=== PATIENT | male | born 1945 | race Hispanic/Latino ===

== ENCOUNTER 2019-01-01 14:40 | Inpatient (IN) | payer MEDICARE, OTHER ==
[~2019-01-01] VITALS: Ht 167.6 cm; Wt 81.2 kg
--- OUTSIDE RECORDS SUMMARY | 2019-01-01 14:43 | XMS REPORT | Clinical Summary ---
Author Author DEVI [facility] Organization [facility] Address Unknown Phone Unavailable Care Team Providers Care Supervisor Erection Shop Name Role Phone Doreen Suh MD PCP Allergies Comments Active Allergy Reactions Severity Noted Date Amoxicillin Nausea Only High 01/07/2015 Burn to skin Latex Other (See High 07/26/2015 Comments) Burn to skin-Can only use paper tape [employer], Other (See High 07/26/2015 Miscellaneous Comments) Medications End Date Status Medication Sig Dispensed Refills Start Date Active predniSONE (DELTASONE) 5 Take 5 mg by 0 MG tablet mouth daily. Active multivitamin capsule Take 1 0 capsule by mouth daily. Active finasteride (PROSCAR) 5 Take 1 tablet 90 tablet 3 mg tablet (5 mg total) 4 by mouth daily. Active tamsulosin (FLOMAX) 0.4 Take 1 90 capsule 3 mg Cp24 24 hr capsule capsule (0.4 4 mg total) by mouth every evening. Active clopidogrel (PLAVIX) 75 Take 1 tablet 30 tablet 3 mg tablet (75 mg total) 4 by mouth daily. Active lancets & blood glucose Check FSG 100 strip 99 strips Cmpk daily. 5 Active cycloSPORINE modified Take 75 mg by 0 (NEORAL) 100 MG capsule mouth 2 (two) 3 times daily . Active metoprolol (LOPRESSOR) 50 Take 50 mg by 0 MG tablet mouth 2 (two) times daily . Active nizatidine (AXID) 150 MG Take 150 mg 0 capsule by mouth 2 (two) times daily. Active blood sugar diagnostic Check your 200 strip 1 (FREESTYLE LITE STRIPS) blood sugar 6 StrpIndications: Diabetes twice daily.. mellitus type 2, uncontrolled (HCC) Active lancets MiscIndications: Please check 100 each 2 Diabetes mellitus type 2, your blood 6 uncontrolled (HCC) sugar twice daily.. Active amLODIPine (NORVASC) 10 Take 1 tablet 90 tablet 1 MG tabletIndications: (10 mg total) 7 Essential hypertension by mouth daily. Active linagliptin (TRADJENTA) 5 Take by 0 mg Tab mouth. Active cholecalciferol, vitamin Take by mouth 0 D3, 2,000 unit Cap daily. Active VIT A/VIT C/VIT Take 1 0 E/ZINC/COPPER capsule by (PRESERVISION AREDS ORAL) mouth daily. Active ramipril (ALTACE) 10 MG Take 10 mg by 0 capsule mouth daily. Active metFORMIN (GLUMETZA) 500 Take 1,000 mg 0 MG (MOD) 24 hr tablet by mouth 2 (two) times daily with breakfast and dinner. Active simvastatin (ZOCOR) 20 MG TAKE ONE 90 tablet 0 tabletIndications: TABLET BY 8 Hyperlipidemia, MOUTH ONCE unspecified DAILY AT hyperlipidemia type BEDTIME 05/02/2018 Discontinued simvastatin (ZOCOR) 20 MG Take 1 tablet 90 tablet 1 tabletIndications: (20 mg total) 7 Hyperlipidemia, by mouth unspecified nightly. 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 Barclay PRA 0/92%, ATG induction, CMV +/+ Still has working AVF L arm DM (diabetes mellitus) Overview: Brittle. He has also been going to diabetes/nutrition education without significant improvement in the BG. Trying for strict control due to h/o CVA. Now follows with Dr Bunn, on metformin and iza. 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 Valenzuela Resolved Problems Problem Noted Date Resolved Date Skin lesion of right arm 12/10/2017 05/28/2018 Encounters Care Team Description Date Type Specialty Doreen Suh MD Hyperlipidemia, unspecified hyperlipidemia type 09/17/2018 Refill Internal Medicine Marielos Roche, DEPARTMENT MANAGER 09/13/2018 Social Work Transplant Doreen Suh MD Type 2 diabetes mellitus with diabetic polyneuropathy, without long-term current use of insulin (HCC) (Primary Dx); Annual physical exam; Current chronic use of systemic steroids; Needs flu shot; Coronary artery disease involving [place] coronary artery of [place] heart without angina pectoris; Essential hypertension; -donor kidney transplant 05/27/2018 Office Visit Internal Medicine Bernice Meadows MD Hyperlipidemia, unspecified hyperlipidemia type 05/02/2018 Refill Internal Medicine after 12/31/2017 Immunizations Name Dates Previously Given Next Due Influenza High Dose 05/27/2018 Preservative Free IM Influenza TIV (IM) 10/08/2013 Pneumococcal Conjugate 01/10/2016 (Prevnar) 13-Valent Pneumococcal 10/08/2012 Polysaccharide (Pneumovax) SHINGLES VARICELLA 01/10/2016 (ZOSTAVAX) ZOSTER Tdap 10/08/2012 Family History Medical History Relation Name Comments Diabetes Mother Relation Name Status Comments Father Mother Social History Date Tobacco Use Types Packs/Day Years Used Never Smoker Smokeless Tobacco: Never Used Tobacco Cessation: Counseling Given: Yes Alcohol Use Drinks/Week oz/Week Comments No Sex Assigned at Date Recorded Not on file Industry Job Start Date Occupation Not on file Not on file Not on file Travel End Travel History Travel Start No recent travel history available. Last Filed Vital Signs Time Taken Vital Sign Reading 05/27/2018 9:22 AM DEFECT CUTTER Blood Pressure 137/68 05/27/2018 9:22 AM DEFECT CUTTER Pulse 69 05/27/2018 9:22 AM DEFECT CUTTER Temperature 36.4 C (97.6 F) 05/27/2018 9:22 AM DEFECT CUTTER Respiratory Rate 18 05/27/2018 9:22 AM DEFECT CUTTER Oxygen Saturation 96% - Inhaled Oxygen - Concentration 05/27/2018 9:22 AM DEFECT CUTTER Weight 72.6 kg (160 lb) 05/27/2018 9:22 AM DEFECT CUTTER Height 167.6 cm (5' 6") 05/27/2018 9:22 AM DEFECT CUTTER Body Mass Index 25.82 Plan of Treatment Not on file Results Not on fileafter 12/31/2017 Insurance Payer Benefit Subscriber ID Type Phone Address Plan / Group MEDICARE MEDICARE A xxxxxxxxxxx Medicare B MCR SUPPLEMENT/INDIVIDUAL GENERIC xxxxxxxxx Medigap MEDICARE SUPPLEMENT Advance Directives For more information, please contact: [address] [address] Date Inactivated Comments Code Status Date Activated 07/29/2015 8:09 PM Full Code 07/26/2015 6:32 PM This code status was determined by: Patient
[2019-01-01 15:53] LABS: BASOPHILS % 0.3 % (0.0-1.0); EOSINOPHILS % 0.3 % (0.0-6.0); HEMATOCRIT 33.6 % (38.2-49.6); HEMOGLOBIN 11.2 g/dL (14.0-18.0); LYMPHOCYTES # (AUTO) 1.3 (1.0-3.2); LYMPHOCYTES % 11.4 % (18.0-39.1); MEAN CORPUSCULAR HEMOGLOBIN 31.1 pg (28-32); MEAN CORPUSCULAR HGB CONC 33.3 g/dL (31-35); MEAN CORPUSCULAR VOLUME 93.3 fL (81-99); MONOCYTES # (AUTO) 0.6 (0.2-0.8); MONOCYTES % 5.1 % (4.4-11.3); NEUTROPHILS # (AUTO) 9.5 (2.1-6.9); NEUTROPHILS % 82.4 % (38.7-80.0); PLATELET COUNT 262 x10e3/uL (140-360); RED CELL DISTRIBUTION WIDTH 12.9 % (11.7-14.4)
[2019-01-01] MEDS ORDERED: FINASTERIDE5 MG PO (15:54)
[2019-01-01] MEDS ORDERED: FLOMAX0.4 MG PO (15:54)
[2019-01-01] MEDS ORDERED: PREDNISONE5 MG PO (15:54)
[2019-01-01] MEDS ORDERED: FUROSEMIDE40 MG PO (15:54)
[2019-01-01] MEDS ORDERED: CLOPIDOGREL75 MG PO (15:54)
[2019-01-01] MEDS ORDERED: TRADJENTA5 MG PO (15:54)
[2019-01-01] MEDS ORDERED: ZOCOR20 MG PO (15:54)
[2019-01-01] MEDS ORDERED: DIALYVITE TABL1 EACH (15:54)
[2019-01-01] MEDS ORDERED: NORVASC10 MG PO (15:54)
[2019-01-01] MEDS ORDERED: METOPROLOL TART50 MG PO (15:54)
[2019-01-01] MEDS ORDERED: ALTACE10 MG PO (15:54)
[2019-01-01] MEDS ORDERED: METFORMIN HCL500 MG PO (15:54)
[2019-01-01 16:01] LABS: INR 0.94; PROTHROMBIN TIME 13.1 seconds (11.9-14.5)
[2019-01-01 16:02] LABS: PARTIAL THROMBOPLASTIN TIME 35.2 seconds (23.8-35.5)
[2019-01-01 16:10] LABS: ALANINE AMINOTRANSFERASE 16 IU/L (0-55); ALBUMIN/GLOBULIN RATIO 0.8 (0.8-2.0); ALKALINE PHOSPHATASE 86 IU/L (40-150); ANION GAP 13.1 mmol/L (8-16); BLOOD UREA NITROGEN 32 mg/dL (7-26); BUN/CREATININE RATIO 33 (6-25); CALCIUM 9.7 mg/dL (8.4-10.2); CARBON DIOXIDE 19 mmol/L (22-29); CHLORIDE 103 mmol/L (98-107); CREATININE, SERUM 0.98 mg/dL (0.72-1.25); EST GLOMERULAR FILTRATION RATE > 60 ML/MIN (60-); GLUCOSE 149 mg/dL (74-118); SODIUM 130 mmol/L (136-145)
[2019-01-01 16:14] LABS: POTASSIUM 5.1 mmol/L (3.5-5.1)
--- NOTE | 2019-01-01 17:10 | NUR ---
RECEIVED REPORT FROM MARIA TERESA GUY. ASSUMED CARE AT THIS TIME, RESTING IN STRETCHER, BREATHING EVEN/UNLABORED, NO NEEDS VOICED AT THIS TIME.
--- NOTE | 2019-01-01 17:20 | NUR ---
IDENTIFICATION AND RECORDS COMMANDER MARIA TERESA MI CALLED TO INFORM OF PENDING ORDER FOR STAT VASCULAR SONOGRAM.
--- NOTE | 2019-01-01 17:32 | NUR ---
SPOKE WITH SUPERVISOR [facility]TO[employer]ET[employer]OR[facility], EXAM ALREADY COMPLETED AND GIVEN TO MD FOR REVIEW.
[2019-01-01] MEDS ORDERED: HYDRALAZINE HCL 20 MG/ML VIAL IV STA (17:33)
[2019-01-01] MEDS ORDERED: ONDANSETRON HCL INJ 2MG/ML 2ML 2 MG/ML VIAL IV PRN (18:45)
[2019-01-01] MEDS ORDERED: MORPHINE SULFATE 2 MG/ML SYR 1ML IV PRN (18:45)
[2019-01-01] MEDS ORDERED: DEXTROSE 50% SYRINGE 50 ML IV PRN (18:45)
--- OUTSIDE RECORDS SUMMARY | 2019-01-01 18:49 | XMS REPORT | Clinical Summary ---
Author Author DEVI [facility] Organization [facility] Address Unknown Phone Unavailable Care Team Providers Care Cup Machine Operator Name Role Phone Doreen Suh MD PCP [...] type 09/17/2018 Refill Internal Medicine Marielos Roche, TEST AND RESEARCH REACTOR OPERATOR 09/13/2018 Social Work Transplant Doreen Suh MD Type 2 diabetes mellitus with diabetic polyneuropathy, without long-term current use of insulin (HCC) (Primary Dx); Annual physical exam; Current chronic use of systemic steroids; Needs flu shot; Coronary artery disease involving [place] coronary artery of [place] heart without angina pectoris; Essential hypertension; -donor [...] Taken Vital Sign Reading 05/27/2018 9:22 AM YARN WRAPPER Blood Pressure 137/68 05/27/2018 9:22 AM YARN WRAPPER Pulse 69 05/27/2018 9:22 AM YARN WRAPPER Temperature 36.4 C (97.6 F) 05/27/2018 9:22 AM YARN WRAPPER Respiratory Rate 18 05/27/2018 9:22 AM YARN WRAPPER Oxygen Saturation 96% - Inhaled Oxygen - Concentration 05/27/2018 9:22 AM YARN WRAPPER Weight 72.6 kg (160 lb) 05/27/2018 9:22 AM YARN WRAPPER Height 167.6 cm (5' 6") 05/27/2018 9:22 AM YARN WRAPPER Body Mass Index 25.82 Plan of Treatment Not on file Results Not on fileafter 12/31/2017 Insurance Payer Benefit Subscriber ID Type Phone Address Plan / Group MEDICARE MEDICARE A xxxxxxxxxxx Medicare B MCR SUPPLEMENT/INDIVIDUAL GENERIC xxxxxxxxx Medigap MEDICARE SUPPLEMENT Advance Directives For more information, please contact: [address] [address] Date Inactivated Comments Code Status Date Activated 07/29/2015 8:09 PM Full Code 07/26/2015 6:32 PM This code status was determined by: Patient
--- NOTE | 2019-01-01 18:59 | Diagnostic Imaging Report ---
RIGHT FOOT - 3 Images HISTORY: Gangrene third toe, swelling, diabetic COMPARISON: None available. FINDINGS: Overlying artifacts limit bone detail. Bones: Attenuation and cortical irregularity involving the tuft of the third toe. Joints: Moderate hallux valgus deformity. Soft tissues: Apparent soft tissue defect at the distal aspect of the third toe. Nonspecific soft tissue swelling. IMPRESSION: Findings compatible with osteomyelitis involving the distal phalanx of the third toe. Signed by: Dr. Yaya Merrill D.O., M.M.M. on 01/01/2019 6:55 PM
[2019-01-01] MEDS ORDERED: SODIUM CHLORIDE 0.9% 1000ML 1,000 ML IV SCH (19:00)
[2019-01-01] MEDS ORDERED: VANCOMYCIN 1GM/NS 250 ML 250 ML IV ONE (19:00)
[2019-01-01 20:08] VITALS: BP 153/69
--- NOTE | 2019-01-01 20:10 | NUR ---
Admin to room 286 via w/c. Pt alert and orient to name, knows he's at [facility], knows the date and time, and knows he's at the hospital for his diabetic foot ulcer. Ambulates steady with quad cane. Legally blind, orientated to bed control and remote with feel also. Skin warm and dry. Stage I pressure ulcer to sacrum and redness. Right foot 3rd toe necrotic and redness. Last BM today. Denies GI problems. 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 Cap refill <3 secs. Denies pain or discomfort at this time. 18g IV right AC, flushed easily 10ml NS. Bed low and locked. Oriented to room. Call flood within reach. Will continue to monitor.
[2019-01-01] MEDS ORDERED: CYCLOSPORINE25 MG PO (20:44)
[2019-01-01 21:00] VITALS: BP 153/69
[2019-01-01] MEDS: INSULIN LISPRO 100 UNIT/1 ML 3ML VIAL SQ SCH (21:00)
[2019-01-01] MEDS: SODIUM CHLORIDE 0.9% 1000ML 1,000 ML IV SCH (21:00)
[2019-01-01] MEDS: MEROPENEM 500MG/ NS 50ML 50 ML IV SCH (21:00)
[2019-01-01 21:25] VITALS: BP 153/69
[2019-01-01] MEDS ORDERED: MEROPENEM 500MG 500 MG in SODIUM CHLORIDE 0.9% 50ML 50 ML IV SCH (22:00)
[2019-01-02] VITALS (8 sets, daily range): BP systolic 127–148; BP diastolic 61–70
[2019-01-02] MEDS: SODIUM CHLORIDE 0.9% 1000ML 1,000 ML IV SCH ×4 (04:35→23:59)
[2019-01-02] MEDS: MEROPENEM 500MG/ NS 50ML 50 ML IV SCH ×3 (04:45→20:11)
[2019-01-02 06:17] LABS: BASOPHILS % 0.3 % (0.0-1.0); EOSINOPHILS # (AUTO) 0.1 (0.0-0.4); EOSINOPHILS % 1.3 % (0.0-6.0); HEMATOCRIT 31.2 % (38.2-49.6); LYMPHOCYTES # (AUTO) 1.3 (1.0-3.2); LYMPHOCYTES % 21.2 % (18.0-39.1); MEAN CORPUSCULAR HEMOGLOBIN 30.6 pg (28-32); MEAN CORPUSCULAR HGB CONC 32.1 g/dL (31-35); MEAN CORPUSCULAR VOLUME 95.4 fL (81-99); MONOCYTES # (AUTO) 0.6 (0.2-0.8); MONOCYTES % 10.2 % (4.4-11.3); NEUTROPHILS # (AUTO) 4.2 (2.1-6.9); NEUTROPHILS % 66.5 % (38.7-80.0); PLATELET COUNT 241 x10e3/uL (140-360); RED BLOOD COUNT 3.27 x10e6/uL (4.3-5.7); RED CELL DISTRIBUTION WIDTH 12.7 % (11.7-14.4)
[2019-01-02 06:30] LABS: ANION GAP 11.4 mmol/L (8-16); BLOOD UREA NITROGEN 23 mg/dL (7-26); BUN/CREATININE RATIO 29 (6-25); CALCIUM 8.9 mg/dL (8.4-10.2); CARBON DIOXIDE 18 mmol/L (22-29); CHLORIDE 111 mmol/L (98-107); CREATININE, SERUM 0.78 mg/dL (0.72-1.25); EST GLOMERULAR FILTRATION RATE > 60 ML/MIN (60-); GLUCOSE 103 mg/dL (74-118); POTASSIUM 4.4 mmol/L (3.5-5.1); SODIUM 136 mmol/L (136-145)
[2019-01-02] MEDS: INSULIN LISPRO 100 UNIT/1 ML 3ML VIAL SQ SCH ×4 (07:30→21:00)
--- NOTE | 2019-01-02 07:30 | NUR ---
Bedsided change of shift report received from MARIA TERESA Brice. Pt is lying in bed, resting comfortably with no acute distress noted, he denies pain, resp even and unlabored. Instructed to use the call light for assistance, bed in the lowest position, locked, and side rails upx2. Pt agreed to activate the bed alarm for his safety.
[2019-01-02] MEDS: VANCOMYCIN 1GM/NS 250 ML 250 ML IV SCH ×2 (09:24→19:31)
[2019-01-02] MEDS: METOPROLOL TARTRATE 50 MG TAB PO SCH ×2 (09:25→16:37)
[2019-01-02] MEDS: AMLODIPINE BESYLATE 10 MG TAB PO SCH (09:26)
--- NOTE | 2019-01-02 10:41 | NUR ---
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 Pt has been on oral antibiotics. PMH: CKD due to HTN, stroke, former smoker, right renal transplant on immunosuppresants, DM2, HLD, BPH, PSHx; renal transplant (right); hernia [place]es; see emr Fh/SH; marrie;d former smoker Meds; see MAR ROS: no f/c/s/N/V/D/ONEIL/cp/sob/vision changes/cp/sob v/s: revd PE: tired appearing anicteric ns1s2 mod bs soft nt nd right foot 3rd toe with gangrenous changes and odor; foot warm; DP 1+ skin dry flat affect a&ox3; ansari labs/meds; revd A/P: 73yoM Osteomyelitis of right 3rd phalanx DM2 HLD Mild anemia Metabolic acidosis Hyponatremia PLAN IV abx Immunosuppresants Consultation Can Jeronimo MD, PhD.
[2019-01-02 11:10] LABS: CHOL/HDL RATIO 2.9 (3.9-4.7)
--- NOTE | 2019-01-02 15:19 | NUR ---
Nutrition Screen Note RD Recommendation for Physician: -Continue current diet as ordered Plan of Care: RD following, monitoring for tolerance and adequacy Nutrition reason for involvement: Nutrition Risk Trigger MST Primary Diagnose(s): R foot cellulitis, right 3rd toe gangrene PMH: no H&P in chart Ht: 66in Wt: 160.04lb BMI: 25.8kg/m2 IBW: 142lb RD Assessment: (01/02) Chart reviewed. Labs and meds reviewed. 73yo M, who was admitted for R foot cellulitis. Currently on insulin, abx, and NaCl. Visited pt in the room. Pt reported good appetite with 100% observed lunch intake. No complains of nausea or vomiting. Pt denied any chewing or swallowing difficulty. Pt reported of 6lbs weight loss in 6 months with unknown cause. No physical sign of muscle or fat loss upon observation. 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 Will continue to monitor and follow. Current Diet: ADA 1800 Malnutrition Evaluation (01/02/2019) The patient does not meet criteria for a specified degree of malnutrition at this time. Will re-evaluate at follow-up as appropriate. Diet Education Needs Assessment: Diet education not indicated. Nutrition Care Level: low Signed: Rahel Esteves, MS, RD, LD
--- NOTE | 2019-01-02 15:47 | NUR ---
WOUND CARE CONSULTATION: THIS IS A 73 YEAR OLD MALE, PATIENT ADMITTED TO [facility] FOR CELLULITIS OF RIGHT FOOT AND GANGRENE OF RIGHT 3RD TOE. PATIENT HAS A HISTORY OF DM TYPE 2 AND KIDNEY TRANSPLANT. HEAD TO TOE SKIN ASSESSMENT PERFORMED. PATIENT HAS A DIABETIC ULCER VALDIVIA 4 TO THE RIGHT 3RD TOE THAT MEASURES 5.2x4x0.1cm, ULCER IS 100% NECROTIC ESCHAR AND MALODOROUS UPON ASSESSMENT. PATIENT STATED THAT THE ULCER HAS BEEN PRESENT FOR OVER [address] WALDRON HAS BEEN TREATING HIM OUTPATIENT FOR PODIATRY. PATIENT STATED THAT DR. WALDRON IS PLANNING A POSSIBLE AMPUTATION OF THE RIGHT 3RD TOE. THE PATIENT'S RIGHT LEG HAS 2+ PITTING EDEMA, MEASURING 25.5, 25, 32.5CM. PATIENT HAS A STAGE 2 PRESSURE ULCER TO THE SACRUM MEASURING 8x4.5x0.1cm, 100% NONBLANCHABLE AND PINK GRANULATION NOTED TO OPEN WOUND BED AREAS. PATIENT HAS A LEFT FOREARM AV FISTULA NOTED WITH ASSESSMENT. HE STATED THAT HE HAS NOT HAD DIALYSIS SINCE HIS TRANSPLANT. LABS: WBC6.27 [id number] HA1C6.3 XRAY OF RIGHT FOOT = + OSTEOMYELITIS INVOLVING THE DISTAL PHALANX OF RIGHT 3RD TOE. LOWER EXT U/S = PENDING ARTERIAL RESULT UNILATERAL LOWER EXT = PENDING MRI OF RIGHT FOOT = ORDERED MEDICATIONS: MEROPENEM VANCOMYCIN RECOMMENDATIONS: -CONTINUE ALTERNATING PRESSURE RELIEF MATTRESS. -TURN EVERY 2 HOURS AND PRN. -APPLY BILATERAL HEEL PROTECTORS WITH PILLOW SUSPENSION. -NURSING TO CLEAN STAGE 2 PRESSURE ULCER TO SACRUM WITH NORMAL SALINE, PAT DRY, APPLY VENELEX THEN ALLEVYN FOAM DRESSING; CHANGE DAILY AND PRN. -NURSING TO CLEAN RIGHT 3RD TOE DIABETIC VALDIVIA 4 ULCER WITH NORMAL SALINE, PAT DRY, APPLY BETADINE WET TO DRY DRESSING, KERLIX; CHANGE DAILY AND PRN. THANK YOU FOR THIS WOUND CARE CONSULTATION. Addendum: 01/02/19 at 1611 by Tiffanie Hassan RN Amended: Links added.
[2019-01-02] MEDS ORDERED: CYCLOSPORINE 25 MG CAP PO SCH ×2 (17:00→17:30)
--- NOTE | 2019-01-02 19:30 | NUR ---
Report given to MARIA TERESA Salgado. Pt is lying in bed resting comfortably with no acute distress noted. Pt showered and he verbalized feeling better. Dressing to sacral area changed. Pt instructed to call for assistance, bed is locked, and side rails upx2.
[2019-01-02] MEDS: SODIUM BICARBONATE 650 MG TAB PO SCH (19:35)
--- NOTE | 2019-01-02 20:53 | Consultation ---
DATE OF CONSULTATION: 01/02/2019 Cardiology Consultation REASON FOR CONSULTATION: Right lower extremity gangrene cellulitis. CONSULTING PHYSICIAN: Shaquille Plaza, Interventional Cardiology. HISTORY OF PRESENT ILLNESS: Mr. Arredondo is a pleasant 73-year-old man with history of hypertension; diabetes mellitus type 2; dyslipidemia; CAD, status post renal transplant 6 years ago; and CAD, status post coronary stents 6 years ago preceding renal transplantation, who was followed by Nephrology on chronic immunosuppressive therapy with today's creatinine being 0.78. He is anemic with a hemoglobin of 10. He has eye blindness and has noticed lately mild discomfort to right foot. After several weeks noted heel sloughing, for which he asked family members for advice on evaluating foot further. It was felt he had foul smelling of foot with black discoloration and he was advised to proceed to the ER, where he underwent further evaluation. He is now admitted with 3rd right toe gangrene and osteomyelitis with associated forefoot cellulitis. He denies any chest discomfort or shortness of breath. He denies any prior history of peripheral artery disease. REVIEW OF SYSTEMS: A 12-system review is negative except for as noted above. PAST MEDICAL HISTORY: Significant for: 1. Diabetes. 2. Hypertension. 3. Dyslipidemia. 4. CKD, status post renal transplant and CAD, status post coronary stents, remote 6 years prior. SOCIAL HISTORY: Denies smoking, alcohol, or drugs. FAMILY HISTORY: Noncontributory. PHYSICAL EXAMINATION: VITAL SIGNS: Temperature 96.6, heart rate 73, blood pressure 127/63, respiratory rate 18, and O2 saturation 99% on room air. BMI is 25.8. GENERAL: He is in no acute distress, alert. NECK: No JVD. No carotid bruits. CHEST: Clear to auscultation. CARDIOVASCULAR: Regular rate and rhythm. Normal S1 and S2. No S3 or S4. No murmurs or rubs. ABDOMEN: Soft and nontender. EXTREMITIES: No edema. Decrease 1+ DP and PT bilaterally, 3rd toe with black discoloration and exposed bone at foul smell erythema in the forefoot. MEDICATIONS: Cardiovascular medications reviewed. 1. Metoprolol tartrate 50 mg b.i.d. 2. Furosemide 20 mg daily. 3. Clopidogrel 75 mg daily. 4. Simvastatin 10 mg at bedtime. 5. Tamsulosin 0.4 mg daily. 6. Amlodipine 10 mg daily. The patient is also on vancomycin and meropenem for antibiotic therapy and he is also on cyclosporine 25 mg b.i.d. as part of his immunosuppressive therapy. He is also on insulin sliding scale and a ramipril 10 mg daily. LABORATORY DATA: Studies; sodium 136, potassium 4.4, chloride 111, bicarbonate 18, BUN 23, creatinine 0.78, and glucose 103. White blood cell 6.2, hemoglobin 10, and platelets 241. INR 0.94. AST 20, ALT 16, alkaline phosphatase 86, and total bilirubin 0.6. ASSESSMENT: A 73-year-old man, status post renal transplant, on immunosuppressive therapy; anemia; diabetes mellitus; hypertension; dyslipidemia; coronary artery disease, status post coronary stents 6 years prior, presents with gangrene and osteomyelitis with associated cellulitis of the right 3rd toe and cellulitis of the forefoot. RECOMMENDATIONS: 1. Obtain arterial Doppler of lower extremities to further evaluate. 2. Antibiotics have been initiated, assess response. 3. We will need at the very least 3rd ray amputation. Depending on initial arterial Dopplers, may consider further evaluation with angiography and possible endovascular intervention as needed. If this would be the case, a renal protection strategy will be to be coordinated with Nephrology given his status post renal transplantation state. The patient is acidotic, metabolic acidosis. Defer evaluation and management to Nephrology expert care. 4. Blood pressure is adequately controlled, continue current antihypertensives. I thank Dr. Jeronimo for the opportunity to participate in the care of Mr. Arredondo. With any questions, please feel free to call phone #[phone]. MD JAMIE Mosquera/RUEL /[id number]
[2019-01-02] MEDS: CYCLOSPORINE 75 MG PO SCH (21:14)
[2019-01-02] MEDS: SIMVASTATIN 20 MG TAB PO SCH (21:14)
--- NOTE | 2019-01-02 21:15 | NUR ---
THE PATIENT REFUSED TO RECEIVE HIS INSULIN. HE WAS ENCOURAGE TO TAKE IT HIS GLUCOSE IS 212. HE STATED HE HAS NOT TAKEN INSULIN FOR A LONG TIME AND IS EATING BETTER TO CONTROL IT.
--- NOTE | 2019-01-02 22:04 | Consultation ---
DATE OF CONSULTATION: REASON FOR CONSULTATION: Infection of his right foot. HISTORY OF PRESENT ILLNESS: This patient who is a very pleasant 73-year-old male with history of end-stage disease. He is status post renal transplant six years ago, diabetes mellitus, hypertension, comes in with redness and swelling of the right foot mainly the 3rd toe. He had partial amputation. He has been dealing with this foot for the last few months. He had a partial toe amputation, but the toe have redness and swelling while he was taking oral antibiotics. He was sent here. The patient is currently lying in bed comfortably. PAST MEDICAL HISTORY: End-stage renal disease status post renal transplant, diabetes mellitus, atherosclerotic disease, peripheral vascular disease, hypertension, and hypercholesteremia. PAST SURGICAL HISTORY: As above. Renal transplant. ALLERGIES: NKA. SOCIAL HISTORY: There is no smoking, drug abuse, or alcohol abuse. FAMILY HISTORY: Hypertension. REVIEW OF SYSTEMS: HEENT: Negative. PULMONARY: Negative. CARDIAC: Negative. : Negative. SKIN: There is no other rash. PHYSICAL EXAMINATION: GENERAL: He is currently alert, oriented, does not seem to be in acute distress. VITAL SIGNS: Stable, afebrile. HEENT: Not icteric. NECK: Supple. CHEST: Clear. HEART: S1 and S2. No murmur. ABDOMEN: Soft. Bowel sounds present. EXTREMITIES: Tenderness with foot. There is erythema. There is edema involving the right foot distal 3rd. IMPRESSION: Infection of the foot concern osteomyelitis, concern peripheral vascular disease. The patient with end-stage renal disease status post renal transplant, immunocompromise. Recommend vascular workup, MRI of the foot. We will put the patient on vancomycin and meropenem. We will follow vancomycin level. We will check sedimentation rate, C-reactive protein. Follow vancomycin trough. We will follow his kidney function closely. Podiatry has been consulted. The patient is at risk for amputation. We will follow. MD IMAN Walker/MODCachorro /[id number]
--- NOTE | 2019-01-02 22:39 | Consultation ---
DATE OF CONSULTATION: 01/02/2019 HISTORY OF PRESENT ILLNESS: A 73-year-old gentleman known to our Nephrology Service, he is 6 years out into kidney transplant, history of hypertension, diabetes, peripheral neuropathy, hypertension, peripheral vascular disease, retinopathy. History of prostatic enlargement. Currently, maintained on cyclosporine 75 mg twice a day and prednisone 5 mg daily. He is also on metoprolol, insulin, Plavix 75 mg daily, simvastatin 10 mg at bedtime, he is on Flomax 0.4 mg daily, amlodipine 10 mg daily, ramipril 10 mg daily. At home, he is also on metformin and linagliptin. That has not been renewed here. He is started on meropenem and vancomycin. Vancomycin was started at q.12. I am going to adjust the dose and check trough levels. The patient currently denies any shortness of breath, nausea, or vomiting. He has been admitted for gangrene of the right 3rd toe. Dr. López has been consulted. ALLERGIES: TO LATEX. SOCIAL HISTORY: Does not smoke or drink. LABORATORY DATA: Show hemoglobin 10 and white count 6.27. Sodium 136, potassium 4.4, chloride 111, bicarbonate 18, BUN 23, and creatinine 0.78. LFTs normal. PHYSICAL EXAMINATION: GENERAL: Awake, alert, lying supine, in no apparent distress with a blood pressure 127/63, pulse is 73, afebrile, and oxygen saturation 99%. HEAD AND NECK: Cornea clear. Mucosa moist. Neck veins flat. LUNGS: Relatively clear. HEART: S1, S2 audible. ABDOMEN: Otherwise soft and nontender. EXTREMITIES: Lower extremity, no edema. Toe exam per Dr. López and primary care physician. IMPRESSION AND PLAN: Cadaveric renal transplant on immunosuppressive medication, underlying hypertension, diabetes, overall improved. Has evidence of distal RTA. We will hold off on metformin and linagliptin at this point in time. Consider treating diabetes with insulin. At this point in time, we will start sodium bicarbonate tablets. The transplant medications adjusted to his home dose. If he gets the same cyclosporine here in the hospital being dispensed, otherwise the patient asked to take his home cyclosporine medication. Blood pressure appears controlled. Volume status stable. MD MAURO Chopra/MODL /[id number]
[2019-01-03] VITALS (8 sets, daily range): BP systolic 112–168; BP diastolic 58–78
[2019-01-03] MEDS: MEROPENEM 500MG/ NS 50ML 50 ML IV SCH ×3 (04:00→23:25)
[2019-01-03] MEDS: VANCOMYCIN 1GM/NS 250 ML 250 ML IV SCH ×2 (06:27→21:50)
--- NOTE | 2019-01-03 06:30 | NUR ---
Patient laying in bed, sleeping but arousable, respirations are even and unlabored. IV patent. Dressings reinforced. bed low, wheels locked and call light within reach. Bed alarm on.
--- NOTE | 2019-01-03 07:15 | NUR ---
PATIENT ASSISTED TO THE RESTROOM AND BACK TO RECLINING CHAIR. DRESSING DRY AND INTACT TO RIGHT 3RD NECROTIC TOE. ALL PERSONAL ITEMS CLOSE TO PATIENT. CALL LIGHT AT REACH.
[2019-01-03] MEDS: INSULIN LISPRO 100 UNIT/1 ML 3ML VIAL SQ SCH ×4 (07:30→21:00)
[2019-01-03] MEDS: CYCLOSPORINE 75 MG PO SCH ×2 (09:00→21:00)
[2019-01-03] MEDS ORDERED: CLOPIDOGREL BISULFATE 75 MG TAB PO SCH (09:00)
[2019-01-03] MEDS: TAMSULOSIN HCL 0.4 MG CAP PO SCH (09:09)
[2019-01-03] MEDS: FUROSEMIDE 20 MG TAB PO SCH (09:09)
[2019-01-03] MEDS: METOPROLOL TARTRATE 50 MG TAB PO SCH ×2 (09:09→17:30)
[2019-01-03] MEDS: RAMIPRIL 5 MG CAP PO SCH (09:09)
[2019-01-03] MEDS: SODIUM BICARBONATE 650 MG TAB PO SCH ×2 (09:10→17:30)
[2019-01-03] MEDS: FINASTERIDE 5 MG TAB PO SCH (09:10)
[2019-01-03] MEDS: PREDNISONE 5 MG TAB PO SCH (09:10)
[2019-01-03] MEDS: AMLODIPINE BESYLATE 10 MG TAB PO SCH (09:10)
--- NOTE | 2019-01-03 11:30 | NUR ---
DR WALDRON IN TO SEE PATIENT. NEW ORDER RECEIVED TO HOLD PLAVIX FOR POSSIBLE SURGERY ON SUNDAY. PATIENT AWARE OF PLAN OF CARE.
[2019-01-03] MEDS ORDERED: GADOBENATE DIMEGLUMINE 1 ML IV ONE (11:58)
[2019-01-03] MEDS ORDERED: CYCLOSPORINE 25 MG CAP PO SCH (12:00)
--- NOTE | 2019-01-03 12:55 | NUR ---
PATIENT OFF UNIT TO RADIOLOGY.
[2019-01-03] MEDS: BALSAM PERU/CASTOR OIL 5 GM OINT...G. TP SCH (13:03)
--- NOTE | 2019-01-03 13:20 | NUR ---
PATIENT BACK TO UNIT FROM RADIOLOGY. UNABLE TO COMPLETE THE MRI OF RIGHT FOOT DUE TO MACHINE BROKEN DOWN DURING PROCEDURE.
--- NOTE | 2019-01-03 16:03 | Progress Note ---
DATE: I am covering for Dr. Can Jeronimo, who was out of town. SUBJECTIVE: The patient is currently doing well, sitting in a chair with no complaints. He is scheduled to have amputation of the right 3rd toe on Sunday according to the patient and the nursing staff. OBJECTIVE: VITAL SIGNS: Temperature is 97.5, pulse 72, respiratory rate is 20, blood pressure 139/67, and pulse ox 97% on room air. GENERAL: Not in acute distress, alert and oriented x3. Cooperative on examination. HEENT: Head normocephalic, atraumatic. Eyes; pupils are equal, round, and reactive to light bilaterally. Extraocular movements are intact bilaterally. NECK: Supple. Good range of motion. THROAT: No evidence of erythema or exudates in the posterior pharynx. Has poor dentition. PULMONARY: Clear to auscultation bilaterally. No wheezing, rales, or rhonchi. No crackles appreciated. CARDIOVASCULAR: Positive S1, S2. No murmurs, rubs, or gallops appreciated. ABDOMEN: Soft, nondistended, and nontender to palpation. Bowel sounds present. MUSCULOSKELETAL: Strength is 5/5 throughout. No evidence any muscle deficits on examination. NEUROLOGIC: Cranial nerves II through XII grossly intact. No evidence of any neurological deficits on exam. SKIN: Intact. Warm to touch. Good capillary refill. PSYCHIATRIC: Normal affect and mood. EXTREMITIES: He has right foot 3rd toe gangrene needing amputation. LAB FINDINGS: Show white count of 6.2, hemoglobin 10, hematocrit 31, platelets of 241. Coagulation, PT 13, INR 0.94, PTT 35. Chemistries; sodium is 136, potassium 4.4, chloride 111, bicarbonate is 18, anion gap of 11, BUN is 23, creatinine is 0.78, calcium is 8.9. LFTs within normal range. Total bilirubin is 0.6, albumin is 3, LDL 33. Microbiology; none. IMAGING STUDIES: Foot x-ray shows compatible osteomyelitis of the distal phalanx of the 3rd toe. IMPRESSION: 1. Osteomyelitis of the 3rd right third phalanx. 2. Type 2 diabetes. 3. Hyperlipidemia. 4. Anemia. 5. donor kidney transplant. 6. Metabolic acidosis. 7. Mild . PLAN: At this time, the patient is scheduled to have his 3rd toe amputation on Sunday by podiatry. We will wait for Cardiology clearance in order for him to have his toe amputated. We will continue with IV antibiotics for now. Podiatry and technology teacher following closely. In relation to his kidney transplant, nephrology is consulted and they will manage that accordingly. Otherwise, his labs are currently stable. His vitals are stable. We will get a.m. labs as well. We will continue with same plan of care and monitor him very closely otherwise. MD TARUN Edwards/RUEL /[id number]
[2019-01-03] MEDS ORDERED: ONDANSETRON HCL 4 MG ORAL DISINTEGRATING TAB PO PRN (17:00)
--- NOTE | 2019-01-03 18:44 | Consultation ---
DATE OF CONSULTATION: 01/02/2019 REASON FOR CONSULTATION: Followup gangrenous changes to right foot third digit particularly. HISTORY OF PRESENT ILLNESS: Mr. Arredondo is a pleasant 73-year-old male with multiple underlying comorbidities whom I have been following outpatient regarding his third digit ulceration with gangrenous changes to distal tip of the same. Unfortunately, he has failed outpatient treatment and recommended inpatient management. Sent through the ED secondary to progressive erythema. PAST MEDICAL HISTORY: 1. Diabetes mellitus. 2. Peripheral arterial disease. 3. End-stage renal disease status post renal transplant. 4. Hypertension. 5. Hypercholesterolemia. PAST SURGICAL HISTORY: Renal transplant. ALLERGIES: NEGATIVE. SOCIAL HISTORY: No history of alcohol, tobacco, or illicit drug abuse. FAMILY HISTORY: Hypertension. REVIEW OF SYSTEMS: A 11-point review of systems negative with the exception of the changes associated to his right foot. PHYSICAL EXAMINATION: GENERAL: AAO x3. NAD. VITAL SIGNS: Stable. He is afebrile. HEENT: Normocephalic, atraumatic. Anicteric. ABDOMEN: Soft, nontender, and nondistended. RESPIRATORY: Symmetrical expansion. No distress. PSYCHIATRIC: Normal affect. EXTREMITIES: Indeed gangrenous changes associated to the distal tip of the 3rd digit with discoloration progressing proximally erythema to the forefoot. No active drainage. No soft tissue crepitus. IMAGING: X-ray relates underlying osteomyelitis. ASSESSMENT: Peripheral arterial disease underlying third digit, also with underlying gangrenous changes distally. PLAN: At this point, we recommend amputation, one followed the other consultants examined the patient particularly Renal and Cardiac consultants. In the interim, local wound care, but definitely needs multidisciplinary approach. GARCIA Escobedo/MODL /[id number]
[2019-01-03] MEDS: SODIUM CHLORIDE 0.9% 1000ML 1,000 ML IV SCH (21:50)
[2019-01-03] MEDS: SIMVASTATIN 20 MG TAB PO SCH (21:50)
[2019-01-04] VITALS (7 sets, daily range): BP systolic 126–165; BP diastolic 66–78
--- NOTE | 2019-01-04 01:00 | Progress Note ---
DATE: 01/03/2019 SUBJECTIVE: No acute events overnight. The patient with no new complaints. OBJECTIVE: VITAL SIGNS: Temperature 96.9, heart rate 76, blood pressure 124/59, respiration 18, and O2 saturation 98%. GENERAL: No acute distress. NECK: No JVD. No carotid bruits. CHEST: Clear to auscultation. CARDIOVASCULAR: Regular rate and rhythm. Normal S1 and S2. ABDOMEN: Soft and nontender. EXTREMITIES: Trace lower extremity edema. Decreased dorsalis pedis and posterior tibial pulses bilaterally. Right foot with necrotic toes. MEDICATIONS: Please refer to chart. LABORATORY DATA: Hemoglobin 11.2, white blood cell count 11.5, platelet count 262. INR 0.94. Glucose 199. IMAGING: No study completed today. ASSESSMENT: A 73-year-old man with the followin. Right foot gangrene and osteomyelitis. 2. CAD status post PCI with a stent. 3. Hypertension. 4. Diabetes. 5. Anemia. 6. Status post renal transplant, on immunosuppressive therapy. RECOMMENDATIONS: 1. The patient is tentatively scheduled for possible surgical amputation next week and a cardiac clearance is recommended. As a result, the patient will need echocardiogram completed to assess EF and valvular function. The patient reports recent nuclear stress test completed by his primary mine engineering superintendent in August of this year where no intervention was required. 2. Continue wound care and antibiotics per Podiatry and Primary Team. 3. Continue current medications, blood pressure is stable. Further recommendations as clinical course progresses. We will continue to follow the patient with you. Cross covering for Dr. Shaquille Plaza. MD LUNA Hwang/IRENEL /[id number]
[2019-01-04] MEDS: MEROPENEM 500MG/ NS 50ML 50 ML IV SCH ×3 (04:44→21:15)
[2019-01-04 05:35] LABS: BASOPHILS % 0.1 % (0.0-1.0); EOSINOPHILS # (AUTO) 0.1 (0.0-0.4); EOSINOPHILS % 1.6 % (0.0-6.0); HEMATOCRIT 30.4 % (38.2-49.6); LYMPHOCYTES # (AUTO) 1.2 (1.0-3.2); MEAN CORPUSCULAR HEMOGLOBIN 30.6 pg (28-32); MEAN CORPUSCULAR HGB CONC 32.9 g/dL (31-35); MONOCYTES # (AUTO) 0.6 (0.2-0.8); MONOCYTES % 9.1 % (4.4-11.3); NEUTROPHILS % 71.5 % (38.7-80.0); PLATELET COUNT 238 x10e3/uL (140-360); RED BLOOD COUNT 3.27 x10e6/uL (4.3-5.7); RED CELL DISTRIBUTION WIDTH 12.9 % (11.7-14.4)
[2019-01-04 05:58] LABS: ALANINE AMINOTRANSFERASE 12 IU/L (0-55); ALBUMIN 2.4 g/dL (3.5-5.0); ALBUMIN/GLOBULIN RATIO 0.7 (0.8-2.0); ALKALINE PHOSPHATASE 73 IU/L (40-150); ANION GAP 11.1 mmol/L (8-16); BLOOD UREA NITROGEN 13 mg/dL (7-26); BUN/CREATININE RATIO 17 (6-25); CALCIUM 8.4 mg/dL (8.4-10.2); CARBON DIOXIDE 22 mmol/L (22-29); CHLORIDE 110 mmol/L (98-107); CREATININE, SERUM 0.75 mg/dL (0.72-1.25); EST GLOMERULAR FILTRATION RATE > 60 ML/MIN (60-); GLUCOSE 145 mg/dL (74-118); POTASSIUM 4.1 mmol/L (3.5-5.1); SODIUM 139 mmol/L (136-145)
[2019-01-04] MEDS: VANCOMYCIN 1GM/NS 250 ML 250 ML IV SCH ×2 (07:00→19:55)
[2019-01-04] MEDS: INSULIN LISPRO 100 UNIT/1 ML 3ML VIAL SQ SCH ×4 (07:30→21:15)
--- NOTE | 2019-01-04 07:45 | NUR ---
Patient alert and responsive, no resp distress, VSS and OOB siting on chair in the room, call light within reach and will monitor.
[2019-01-04] MEDS: FUROSEMIDE 20 MG TAB PO SCH (09:00)
[2019-01-04] MEDS: BALSAM PERU/CASTOR OIL 5 GM OINT...G. TP SCH (09:00)
[2019-01-04] MEDS: CYCLOSPORINE 75 MG PO SCH ×2 (09:00→21:00)
[2019-01-04] MEDS: PREDNISONE 5 MG TAB PO SCH (09:03)
[2019-01-04] MEDS: AMLODIPINE BESYLATE 10 MG TAB PO SCH (09:03)
[2019-01-04] MEDS: RAMIPRIL 5 MG CAP PO SCH (09:03)
[2019-01-04] MEDS: FINASTERIDE 5 MG TAB PO SCH (09:03)
[2019-01-04] MEDS: SODIUM BICARBONATE 650 MG TAB PO SCH (09:03)
[2019-01-04] MEDS: TAMSULOSIN HCL 0.4 MG CAP PO SCH (09:03)
[2019-01-04] MEDS: METOPROLOL TARTRATE 50 MG TAB PO SCH ×2 (09:05→22:20)
[2019-01-04] MEDS: DOCUSATE SODIUM 100 MG CAP PO SCH (10:15)
--- NOTE | 2019-01-04 16:44 | NUR ---
Rounds by dragline operator, increased BB to TID and reviewed Echo, stated patient is a Moderate Risk for procedure on Sunday but might still go ahead and have procedure. Stated dictated her note on reports. Changed dressing to left toe, very necrotic with odor noted. MRI done. Patient OOB and sitting on recliner, will monitor.
--- NOTE | 2019-01-04 18:53 | Progress Note ---
DATE: 01/04/2019 SUBJECTIVE: No acute events overnight. The patient with no new complaints. OBJECTIVE: VITAL SIGNS: Temperature is 96.6, heart rate 69, respirations 18, blood pressure 165/77. GENERAL: No acute distress. NECK: No JVD. No bruits. CHEST: Clear to auscultation. CARDIOVASCULAR: Regular rate and rhythm. Normal S1 and S2. ABDOMEN: Soft and nontender. EXTREMITIES: Trace lower extremity edema. Decreased dorsalis pedis and posterior tibial pulses bilaterally. Right foot with bandages that are clean, dry, and intact. MEDICATIONS: Please refer to chart. LABORATORY DATA: No new labs obtained. IMAGING DATA: Echocardiogram, preliminary result shows an ejection fraction of 55% to 59% with sclerotic aortic and mitral valves. Final report will be available on Sunday. ASSESSMENT: A 73-year-old man with the followin. Right foot gangrene and osteomyelitis. 2. Coronary artery disease, status post PCI with a stent. 3. Hypertension. 4. Diabetes. 5. Anemia. 6. Status post renal transplant, on immunosuppressive therapy. RECOMMENDATIONS: 1. Preliminary echocardiogram shows preserved EF with sclerotic valve and the patient reports nuclear stress test completed by his primary relay adjuster in August of this year where no intervention was required. As a result, the patient will have moderate surgical risk and can proceed to surgery on Sunday as scheduled. 2. Elevated blood pressure noted. Recommend to increase dosing of metoprolol to 50 mg t.i.d. 3. Continue wound care and antibiotics per Podiatry and Primary Team. 4. Deep vein thrombosis prophylaxis. We will continue to follow the patient with you. Cross covering for Dr. Shaquille Plaza. MD LUNA Hwang/RUEL /[id number]
--- NOTE | 2019-01-04 19:23 | Progress Note ---
DATE: 01/04/2019 Medicine Progress Note I am covering for Dr. Can Jeronimo. SUBJECTIVE: The patient is doing well today with no complaints. He is scheduled to have amputation of his toe on Sunday night. LAB FINDINGS: Show white count 7, hemoglobin 10, hematocrit 30, platelets of 238. Chemistry; sodium 139, potassium 4.1, chloride 110, bicarb 22, anion gap of 11, BUN 13, creatinine 0.75, glucose 145. LFTs within normal range. PHYSICAL EXAMINATION: VITAL SIGNS: Temperature 96.5, pulse 71, respiratory rate 18, blood pressure 142/66, and pulse ox 96% on room air. GENERAL: In no acute distress, alert and oriented x3, cooperative on examination. HEENT: Head, normocephalic and atraumatic. Eyes, pupils equal, round, reactive to light bilaterally. Extraocular movements are intact bilaterally. Throat, no evidence of any erythema or exudates in the posterior pharynx. Has poor dentition. NECK: Supple. Good range of motion. PULMONARY: Clear to auscultation bilaterally. No wheezing, rales, or rhonchi. No crackles appreciated. CARDIOVASCULAR: Positive S1 and S2. No murmurs, rubs, or gallops appreciated. ABDOMEN: Soft, nondistended, and nontender to palpation. Bowel sounds are present. MUSCULOSKELETAL: NEUROLOGIC: Cranial nerves II through XII grossly intact SKIN: Intact. Warm to touch. Good cap refill. PSYCHIATRIC: Normal affect and mood. EXTREMITIES: No edema. Good range of motion throughout. IMPRESSION: 1. Osteomyelitis of the right third phalanx. 2. Type 2 diabetes mellitus. 3. Hyperlipidemia. 4. Anemia. 5. donor kidney transplant. 6. Metabolic acidosis, improving. PLAN: At this time, I believe he is scheduled for amputation of the third right toe on Sunday by Podiatry. Await on Cardiology clearance to perform the intervention need with amputation. Rn Pacu consulted for kidney transplant. Otherwise, continue with same plan of care. Labs reviewed and stable. MD TARUN Edwards/MODL /[id number]
[2019-01-04] MEDS: SODIUM CHLORIDE 0.9% 1000ML 1,000 ML IV SCH (19:55)
[2019-01-04] MEDS: SIMVASTATIN 20 MG TAB PO SCH (21:15)
--- NOTE | 2019-01-04 21:15 | NUR ---
PATIENT IS AOX4, NO RESPIRATORY DISTRESS NOTED. COMPLAINS OF NO PAIN, SITTING IN RECLINER. WILL CONTINUE TO MONITOR.
[2019-01-05] VITALS (8 sets, daily range): BP systolic 126–160; BP diastolic 61–71
--- NOTE | 2019-01-05 02:05 | NUR ---
PATIENT IS RESTING IN BED COMFORTABLY, BOTH EYES CLOSED. NO SIGNS OF RESPIRATORY DISTRESS NOTED, BED IS LOCKED AND LOW, CALL MONITOR WITHIN EASY REACH, WILL CONTINUE TO MONITOR.
[2019-01-05] MEDS: MEROPENEM 500MG/ NS 50ML 50 ML IV SCH ×3 (04:40→20:05)
[2019-01-05] MEDS: METOPROLOL TARTRATE 50 MG TAB PO SCH ×3 (05:15→21:15)
--- NOTE | 2019-01-05 07:16 | NUR ---
PATIENT OUT OF BED TO RECLINING CHAIR WATCHING TV, NO DISTRESS NOTED. DRESSING DRY AND INTACT TO RIGHT 3RD TOE. ALL PERSONAL ITEMS CLOSE TO PATIENT. CALL LIGHT AT REACH.
[2019-01-05] MEDS: INSULIN LISPRO 100 UNIT/1 ML 3ML VIAL SQ SCH ×4 (07:30→20:05)
[2019-01-05] MEDS: DOCUSATE SODIUM 100 MG CAP PO SCH (09:00)
[2019-01-05] MEDS: CYCLOSPORINE 75 MG PO SCH ×2 (09:00→21:00)
[2019-01-05] MEDS: SODIUM BICARBONATE 650 MG TAB PO SCH ×2 (09:00→17:28)
[2019-01-05] MEDS: TAMSULOSIN HCL 0.4 MG CAP PO SCH (09:10)
[2019-01-05] MEDS: FUROSEMIDE 20 MG TAB PO SCH (09:10)
[2019-01-05] MEDS: RAMIPRIL 5 MG CAP PO SCH (09:10)
[2019-01-05] MEDS: AMLODIPINE BESYLATE 10 MG TAB PO SCH (09:11)
[2019-01-05] MEDS: PREDNISONE 5 MG TAB PO SCH (09:11)
[2019-01-05] MEDS: FINASTERIDE 5 MG TAB PO SCH (09:11)
--- NOTE | 2019-01-05 11:29 | NUR ---
PATIENT SITTING UP IN THE RECLINING CHAIR TALKING TO FAMILY MEMBER VISITING, NO DISTRESS NOTED. O2 IN PLACE VIA N/C. CALL LIGHT AT REACH. Addendum: 01/05/19 at 1131 by Amy Brewer RN WRONG PATIENT.
--- NOTE | 2019-01-05 11:32 | NUR ---
PATIENT ASSISTED TO THE RESTROOM AND BACK TO CHAIR. CALL LIGHT AT REACH
[2019-01-05] MEDS: BALSAM PERU/CASTOR OIL 5 GM OINT...G. TP SCH (11:34)
--- NOTE | 2019-01-05 14:12 | Diagnostic Imaging Report ---
TECHNIQUE: Magnetic resonance imaging of the RIGHT foot was performed without and with injected contrast. 14 cc gadolinium HISTORY: Pain COMPARISON: None available. DISCUSSION: Resorption of the distal phalanx with soft tissue irregularity. Heterogeneous signal within the residual distal phalangeal stump and middle phalanx. Mild edema within the proximal phalanx without T1 replacement. Intramedullary no abnormality within the first metatarsal. Ulceration. Diffuse subcutaneous swelling foot. IMPRESSION: Probable osteomyelitis distal and middle phalanx third toe Signed by: Dr. Ashwin Kaur M.D. on 01/05/2019 2:08 PM
--- NOTE | 2019-01-05 16:40 | NUR ---
IV LEAKING, REMOVED WITH TIP INTACT. NEW IV 20 GAUGE INSERTED TO RIGHT FOREARM, PATIENT TOLERATED PROCEDURE WELL. IV FLUID INFUSING ORDERED.
--- NOTE | 2019-01-05 17:53 | Progress Note ---
DATE: 01/05/2019 Medicine Progress Note SUBJECTIVE: The patient is doing well today with no complaints. He is scheduled for amputation of his toe tomorrow PHYSICAL EXAMINATION: VITAL SIGNS: Afebrile. Normotensive. Respiratory rate is good. GENERAL: Not in acute distress. Alert and oriented x3. Cooperative on examination. HEENT: Head is normocephalic, atraumatic. Eyes; Pupils are equal, round, and reactive to light bilaterally. Extraocular movements are intact bilaterally. Throat; no evidence of any erythema or exudates in the posterior pharynx. Has poor dentition. NECK: Supple. Good range of motion throughout. PULMONARY: Clear to auscultation bilaterally. No wheezing, no rales, no rhonchi, no crackles appreciated. CARDIOVASCULAR: Positive S1, S2. No murmurs, rubs, or gallops appreciated. ABDOMEN: Soft, nondistended, and nontender to palpation. Bowel sounds present. MUSCULOSKELETAL: Strength is 5/5 throughout. No evidence of any muscle deficits on examination. No weakness appreciated. NEUROLOGIC: Cranial nerves II through XII grossly intact. No evidence of any neurological deficits on exam. SKIN: Intact. Warm to touch. Good cap refill. PSYCHIATRIC: Normal affect and mood. EXTREMITIES: No edema. Good range of motion throughout. LABORATORY DATA: Labs reviewed and stable. IMPRESSION: 1. Osteomyelitis of the right 3rd phalanx on the toe. 2. Type 2 diabetes mellitus. 3. Hyperlipidemia. 4. Anemia. 5. donor kidney transplant. 6. Metabolic acidosis, improving. PLAN: At this time waiting for Cardiology clearance post amputation tomorrow by Podiatry. Continue with IV antibiotics for now. Nephrology is following as well. Get a.m. labs. Monitor very closely. Follow investment consultant's recommendations. MD TARUN Edwards/IRENEL /[id number]
--- NOTE | 2019-01-05 17:53 | NUR ---
SETTER MACHINE IN TO SEE PATIENT, PATIENT CLEARED FOR PROCEDURE. DR WALDRON NOTIFIED, NEW ORDERS RECEIVED.
[2019-01-05] MEDS ORDERED: LACTULOSE SYRUP 20 GM/30 ML UDC PO ONE (18:00)
[2019-01-05] MEDS: SIMVASTATIN 20 MG TAB PO SCH (20:05)
[2019-01-05] MEDS: VANCOMYCIN HCL 1.25 GM in SODIUM CHLORIDE 0.9% 250ML 250 ML IV SCH (21:15)
--- NOTE | 2019-01-05 21:15 | NUR ---
PATIENT IS RESTING COMFORTABLY IN BED, NO SIGNS OF DISTRESS NOTED, NO COMPLAINTS OF PAIN. PATIENT ALSO VOICED UNDERSTANDING OF NPO AFTER MIDNIGHT AND CONSENT TO HIS PROCEDURE TOMORROW IT WAS SIGNED. BED IS LOCKED AND LOW, CALL LIGHT WITHIN EASY REACH, WILL CONTINUE TO MONITOR.
--- NOTE | 2019-01-05 21:24 | Progress Note ---
DATE: 01/05/2019 SUBJECTIVE: The patient reports no chest pain, no shortness of breath. No acute events overnight. OBJECTIVE: VITAL SIGNS: Temperature is 98.8, pulse is 77, blood pressure is 151/68, respirations are 18. GENERAL: No acute distress. NECK: No JVD. No bruits. CHEST: Clear to auscultation. CARDIOVASCULAR: Regular rate and rhythm. Normal S1 and S2. ABDOMEN: Soft and nontender. EXTREMITIES: Trace lower extremity edema. Decreased dorsalis pedis and posterior tibial pulses bilaterally. Right foot with bandages that are clean, dry, and intact. MEDICATIONS: Please refer to chart. LABORATORY DATA: No new labs obtained. RADIOLOGY: Echocardiogram completed showing LVEF of 60% to 64% with impaired relaxation. Left atrial dilatation. Sclerotic aortic valve, mitral annular calcification, and no evidence of pericardial effusion. ASSESSMENT: A 73-year-old man with the followin. Right foot gangrene and osteomyelitis. 2. Coronary artery disease status post PCI with stents. 3. Hypertension. 4. Diabetes. 5. Anemia. 6. Status post renal transplant, on immunosuppressive therapy. RECOMMENDATIONS: 1. Echocardiogram completed showing preserved ejection fraction with sclerotic valve. The patient also reports nuclear stress test completed earlier this year in August by his primary securities research analyst where no intervention was required and no ischemia was noted. As a result, the patient will have moderate cardiovascular risk for surgery and can proceed as scheduled on Sunday. 2. Continue current dose of metoprolol. Blood pressure stable. 3. Continue wound care and antibiotics per Podiatry. Surgery scheduled for tomorrow a.m. 4. DVT prophylaxis. 5. We will continue to follow the patient with you. Cross-covering for Dr. Shaquille Plaza. MD LUNA Hwang/RUEL /[id number]
[2019-01-06] VITALS (8 sets, daily range): BP systolic 113–163; BP diastolic 53–75
[2019-01-06] MEDS: MEROPENEM 500MG/ NS 50ML 50 ML IV SCH ×3 (03:44→20:00)
--- NOTE | 2019-01-06 03:45 | NUR ---
UPON MAKING ROUNDS PATIENT IS RESTING COMFORTABLY, EYES CLOSED, NO SIGNS OF DISTRESS. BED IS LOCKED AND LOW, CALL LIGHT WITHIN EASY REACH, WILL CONTINUE TO MONITOR.
[2019-01-06] MEDS: METOPROLOL TARTRATE 50 MG TAB PO SCH ×3 (05:44→22:00)
[2019-01-06 06:21] LABS: BASOPHILS % 0.4 % (0.0-1.0); EOSINOPHILS # (AUTO) 0.2 (0.0-0.4); EOSINOPHILS % 1.9 % (0.0-6.0); HEMATOCRIT 29.2 % (38.2-49.6); HEMOGLOBIN 9.7 g/dL (14.0-18.0); LYMPHOCYTES # (AUTO) 1.4 (1.0-3.2); LYMPHOCYTES % 18.2 % (18.0-39.1); MEAN CORPUSCULAR HGB CONC 33.2 g/dL (31-35); MEAN CORPUSCULAR VOLUME 93.3 fL (81-99); MONOCYTES # (AUTO) 0.8 (0.2-0.8); NEUTROPHILS # (AUTO) 5.3 (2.1-6.9); PLATELET COUNT 278 x10e3/uL (140-360); RED BLOOD COUNT 3.13 x10e6/uL (4.3-5.7); RED CELL DISTRIBUTION WIDTH 12.7 % (11.7-14.4)
[2019-01-06 06:45] LABS: ANION GAP 10.9 mmol/L (8-16); BLOOD UREA NITROGEN 12 mg/dL (7-26); BUN/CREATININE RATIO 17 (6-25); CALCIUM 8.4 mg/dL (8.4-10.2); CARBON DIOXIDE 24 mmol/L (22-29); CHLORIDE 108 mmol/L (98-107); CREATININE, SERUM 0.69 mg/dL (0.72-1.25); EST GLOMERULAR FILTRATION RATE > 60 ML/MIN (60-); GLUCOSE 131 mg/dL (74-118); POTASSIUM 3.9 mmol/L (3.5-5.1); SODIUM 139 mmol/L (136-145)
[2019-01-06] MEDS: INSULIN LISPRO 100 UNIT/1 ML 3ML VIAL SQ SCH ×4 (07:30→21:00)
--- NOTE | 2019-01-06 07:30 | NUR ---
REC'D PATIENT AAOX3, LAYING DOWN IN SEMI-FOWLERS POSITION, ON ROOM AIR, HAS BEEN NPO SINCE MIDNIGHT, IV TO RIGHT FA 20 GAUGE DRY AND INTACT. LIMB ALERT BRACELET TO LEFT ARM. SIDE RAILS UP X2, CALL ESCALANTE WITHIN REACH, AND BED IN LOWEST POSITION.
[2019-01-06] MEDS ORDERED: BACITRACIN 50,000 UNIT VIAL ONE (08:45)
[2019-01-06] MEDS ORDERED: MUPIROCIN 2% OINT 22 GM TUBE ONE (08:45)
[2019-01-06] MEDS: BALSAM PERU/CASTOR OIL 5 GM OINT...G. TP SCH (09:00)
[2019-01-06] MEDS: RAMIPRIL 5 MG CAP PO SCH (09:00)
[2019-01-06] MEDS: AMLODIPINE BESYLATE 10 MG TAB PO SCH (09:00)
[2019-01-06] MEDS: TAMSULOSIN HCL 0.4 MG CAP PO SCH (09:00)
[2019-01-06] MEDS: FINASTERIDE 5 MG TAB PO SCH (09:00)
[2019-01-06] MEDS: CYCLOSPORINE 75 MG PO SCH ×2 (09:00→21:00)
[2019-01-06] MEDS: SODIUM BICARBONATE 650 MG TAB PO SCH ×2 (09:00→16:10)
[2019-01-06] MEDS: FUROSEMIDE 20 MG TAB PO SCH (09:00)
[2019-01-06] MEDS: PREDNISONE 5 MG TAB PO SCH (09:00)
--- NOTE | 2019-01-06 09:25 | NUR ---
PATIENT HAS SIGNED CONSENT FOR PROCEDURE. AND DAUGHTER AT THE BEDSIDE. OR STAFF CAME TO FAN BALANCER PATIENT FOR SURGERY.
[2019-01-06] MEDS ORDERED: THROMBIN FOR SOLN 5,000 UNIT VIAL ONE (10:58)
[2019-01-06] MEDS ORDERED: LIDOCAINE HCL 2% LOCAL 20 ML VIAL ONE (11:15)
[2019-01-06 11:56] LABS: HEMATOCRIT 28.9 % (38.2-49.6); HEMOGLOBIN 9.2 g/dL (14.0-18.0)
--- NOTE | 2019-01-06 12:15 | NUR ---
PATIENT RETURNED FROM PROCEDURE. VITAL SIGNS ARE 159/70, OX 96% VIA NC 3L/MIN, HR IS 69, RR ARE 18, TEMP IS 97.3, AND BLOOD SUGAR IS 110. DAUGHTER AND AT BEDSIDE. ON O2 VIA NC RUNNING AT 3L/MIN. NO S/S OF DISTRESS. RIGHT FOOT ELEVATED WITH PILLOW. HOOKED BACK UP TO NS FLUIDS. SIDE RAILS UP X2, CALL ESCALANTE WITHIN REACH, AND BED IN LOWEST POSITION. LUNCH TRAY ORDERED PER DR. WALDRON DIET ORDER.
[2019-01-06] MEDS ORDERED: SODIUM CHLORIDE 0.9% 1000ML 1,000 ML ONE (12:44)
--- NOTE | 2019-01-06 14:05 | NUR ---
PATIENT IS AWAKE AND LAYING IN BED WITH NO S/S OF DISTRESS. NASAL CANNULA IN PLACED AND RUNNING AT 3L/.MIN. RIGHT FOOT IS PROPPED UP ON ONE PILLOW. DRESSINGS ARE CLEAN AND INTACT WITH NO DRAINAGE. SIDE RAILS ARE UP X2, FLUIDS ARE RUNNING, BED IN LOWEST POSITION, AND CALL ESCALANTE WITHIN REACH.
--- NOTE | 2019-01-06 14:45 | NUR ---
TREATMENT CREAM AND FOAM DRESSING APPLIED TO SACRUM. PATIENT REPOSITIONED IN BED. SIDE RAILS UP X2, CALL ESCALANTE WITHIN REACH, AND BED IN LOWEST POSITION.
--- NOTE | 2019-01-06 15:11 | Progress Note ---
DATE: 01/06/2019 SUBJECTIVE: The patient reports no new complaints. The patient is now status post surgery. OBJECTIVE: VITAL SIGNS: Temperature is 97.6, pulse 85, blood pressure is 156/73, and respirations 16. GENERAL: No acute distress. NECK: No JVD. No bruits. CHEST: Clear to auscultation. CARDIOVASCULAR: Regular rate and rhythm. Normal S1 and S2. ABDOMEN: Soft and nontender. EXTREMITIES: Trace lower extremity edema. Right foot bandages are clean, dry, and intact. MEDICATIONS: Please refer to chart. LABORATORY DATA: Hemoglobin 9.7. Potassium 3.9. Creatinine 0.69. RADIOLOGY: No new imaging obtained. ASSESSMENT: A 73-year-old man with the followin. Right foot gangrene and osteomyelitis, now status post third digit amputation. 2. Coronary artery disease, status post percutaneous coronary intervention with stents. 3. Hypertension. 4. Diabetes. 5. Anemia. 6. Status post renal transplant, on immunosuppressive therapy. 7. Peripheral vascular disease. RECOMMENDATIONS: 1. Right foot gangrene and osteomyelitis, now status post third digit amputation. 2. Per Podiatry, the patient had significant bleeding during surgery. Continue wound care and antibiotics. We will hold anticoagulants for today and reasses in the a.m. Continue to monitor H and H. 3. Blood pressure is stable. We will begin low dose Imdur for additional blood pressure control. 4. DVT prophylaxis. 5. We will continue to follow the patient with you. Cross covering for Dr. Shaquille Plaza. MD LUNA Hwang/RUEL /[id number]
[2019-01-06] MEDS ORDERED: PROPOFOL IV EMULSION 10 MG/ML 20 ML VIAL ONE (16:54)
[2019-01-06] MEDS ORDERED: LIDOCAINE HCL 2% LOCAL INJ 5 ML SDV VIAL INJ ONE (16:54)
[2019-01-06] MEDS ORDERED: SEVOFLURANE INHAL SOLN 250 ML PEN BTL ONE (16:54)
[2019-01-06] MEDS ORDERED: FENTANYL CITRATE/PF 100MCG/2 ML INJ ONE (17:09)
--- NOTE | 2019-01-06 17:32 | Progress Note ---
DATE: 01/06/2019 Medicine Progress Note SUBJECTIVE: The patient is doing well today and underwent amputation of his toe. He underwent an amputation of the right third phalanx on the right toe. PHYSICAL EXAMINATION: VITAL SIGNS: Afebrile, pulse 69, respiratory rate is 18, blood pressure 115/74, and pulse ox 96% on room air. GENERAL: In no acute distress, alert and oriented x3, cooperative on examination. HEENT: Head is normocephalic and atraumatic. Eyes; pupils are equal, round, and reactive to light bilaterally. Extraocular movements are intact bilaterally. NECK: Supple. Good range of motion throughout. No evidence of any erythema or exudate in the posterior pharynx. Has poor dentition. PULMONARY: Clear to auscultation bilaterally. No wheezing, rales, or rhonchi. No crackles appreciated. CARDIOVASCULAR: Positive S1, S2. No murmurs, rubs, or gallops. ABDOMEN: Soft, nondistended, and nontender to palpation. Bowel sounds present. MUSCULOSKELETAL: Strength is 5/5 throughout. No evidence of any muscle deficits on examination. No weakness appreciated. NEUROLOGIC: Cranial nerves II through XII grossly intact on exam. SKIN: Intact. Warm to touch. Good cap refill. PSYCHIATRIC: Normal affect and mood. EXTREMITIES: No edema. Good range of motion throughout. LAB FINDINGS: Show white count is 7.7, hemoglobin 9.2, hematocrit 28.9, and his platelets are 278. PT 13, INR 0.94, and PTT 35. Chemistry, sodium 139, potassium 3.9, chloride 108, bicarb 24, anion gap of 10, BUN 12, creatinine 0.69, glucose is 131, and calcium 8.4. IMAGING STUDIES: MRI of the foot shows probable osteomyelitis in the distal and middle phalanx of the third toe. IMPRESSION: 1. Osteomyelitis of the right third phalanx of the right foot, status post amputation performed on 01/06/2019. 2. Type 2 diabetes. 3. Hyperlipidemia. 4. Anemia. 5. donor kidney transplant. 6. Metabolic acidosis, is resolved. PLAN: The patient had cardiac clearance, had amputation of his toe on 01/06/2019 by Podiatry. The patient is doing well. Continue with IV antibiotics. Nephrology is following as well. 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 He verbalized understanding. We will continue same plan of care and monitor closely. MD TARUN Edwards/RUEL /[id number]
--- NOTE | 2019-01-06 18:06 | NUR ---
PATIENT IS LAYING IN SEMI-AGUILAR'S POSITION WITH NO S/S OF DISTRESS. PATIENT ON NASAL CANNULA ON 3 L/MIN. FAMILY AT THE BEDSIDE. SIDE RAILS UP X2, CALL ESCALANTE WITHIN REACH, AND BED IN LOWEST POSITION.
--- NOTE | 2019-01-06 18:12 | Operative Report ---
DATE OF PROCEDURE: 01/06/2019 SURGEON: Severino Yoon DPM PREOPERATIVE DIAGNOSIS: Gangrene, third digit of right foot. POSTOPERATIVE DIAGNOSIS: Confirmed. PROCEDURES: 1. Amputation of third digit right foot. 2. Application of AmnioFill, roughly 250 mg. PROPERTY OFFICER: None. ESTIMATED BLOOD LOSS: Approximately 120 mL to 150 mL. HEMOSTASIS: Pneumatic tourniquet, right thigh. MATERIALS UTILIZED: 1. AmnioFill. 2. Surgicel. 3. Thrombin. PATHOLOGY: Third digit of right foot. INDICATION FOR PROCEDURE: Mr. Arredondo is a pleasant 73-year-old male, admitted secondary to the aforementioned diagnosis leading to digital amputation, has a multidisciplinary approach to his care. He has been cardiac grant cleared and at this point ready for amputation of the third digit. He was educated on risks and complications including not limited to deep vein thrombosis, nonhealing, more proximal amputation, ischemic changes, and others. The patient is willing and able to proceed. DESCRIPTION OF PROCEDURE: Under monitored sedation, he was brought to the operating room and placed on the operating room table in supine position. Following induction and administration of general LMA anesthesia by Anesthesia Service, a well padded pneumatic tourniquet was placed on the patient's right thigh. Next, distal right lower extremity was scrubbed, prepped and draped in the usual aseptic manner and attention was then directed to the dorsum of the right foot where a linear incision was created overlying the third ray. Upon creating the incision, there was good amount of bleeding from the surgical site and at this point, I elected to inflate the tourniquet. Next, I proceeded with the deep plane dissection racket like incision with the handle proximally, however, the deep dissection proved to continue to bleed significantly at this point from tissue planes, bleeder not identified, it seemed like it was just tissue bleeding. At this point, the tourniquet was then deflated. The extremity was elevated and then an Esmarch was utilized to exsanguinate and subsequently tourniquet inflated again, unfortunately this attempt was futile. Next, proceeded to pack the area with Gelfoam. Prior to the same, however, the third digit was disarticulated from the surgical site at this point at the level of the . Next, the area was packed with Gelfoam, also thrombin was placed in the area with some amount of hemostasis at that point appreciated. Procedure: Implantation of the AmnioFill was performed particularly due to the fact that the patient is a compromised diabetic patient. He is renal transplant patient as well with multiple underlying comorbidities and needing tissue augmentation, thus AmnioFill packed into the area, implanted in the area and the incision was then closed utilizing 4-0 nylon. Local block was administered and then compressive dressings were applied. He was then subsequently extubated, tourniquet deflated, and transferred to PACU with vital signs stable, might need H and H subsequently to asses level for the same. GARCIA EscobedoC/MODL /[id number]
--- NOTE | 2019-01-06 20:13 | NUR ---
RECEIVED PT IN BED AOX3 .RESPIRATIONS ARE EVEN AND UNLABORED THIRD TOE OF RT FOOT AMPUTATED AND IS WITH DRESSING .RT FA WITH IV .DENIES PAIN .CALL LIGHT WITH IN REACH .CONTINUE TO MONITOR
--- NOTE | 2019-01-06 20:25 | NUR ---
RECEIVED PT IN BED AOX3 .RESPIRATIONS ARE EVEN AND UNLABORED RT FOOT WITH DRESSING /T THE AMPUTATION 3RD TOE RT FOOT .DENIES PAIN .CALL LIGHT WITH IN REACH .CONTINUE TO MONITOR
[2019-01-06] MEDS: VANCOMYCIN HCL 1.25 GM in SODIUM CHLORIDE 0.9% 250ML 250 ML IV SCH (21:00)
[2019-01-06] MEDS: SIMVASTATIN 20 MG TAB PO SCH (21:33)
[2019-01-07] VITALS (8 sets, daily range): BP systolic 124–166; BP diastolic 64–81
[2019-01-07] MEDS: MEROPENEM 500MG/ NS 50ML 50 ML IV SCH ×3 (04:00→20:00)
[2019-01-07] MEDS: SODIUM CHLORIDE 0.9% 1000ML 1,000 ML IV SCH ×2 (04:58→06:15)
[2019-01-07] MEDS: METOPROLOL TARTRATE 50 MG TAB PO SCH ×3 (05:51→23:22)
[2019-01-07 06:02] LABS: BASOPHILS % 0.3 % (0.0-1.0); EOSINOPHILS # (AUTO) 0.2 (0.0-0.4); HEMATOCRIT 29.1 % (38.2-49.6); HEMOGLOBIN 9.2 g/dL (14.0-18.0); LYMPHOCYTES # (AUTO) 1.2 (1.0-3.2); LYMPHOCYTES % 15.4 % (18.0-39.1); MEAN CORPUSCULAR HEMOGLOBIN 30.3 pg (28-32); MEAN CORPUSCULAR HGB CONC 31.6 g/dL (31-35); MEAN CORPUSCULAR VOLUME 95.7 fL (81-99); MONOCYTES # (AUTO) 0.6 (0.2-0.8); MONOCYTES % 8.2 % (4.4-11.3); NEUTROPHILS # (AUTO) 5.7 (2.1-6.9); NEUTROPHILS % 73.6 % (38.7-80.0); PLATELET COUNT 263 x10e3/uL (140-360); RED BLOOD COUNT 3.04 x10e6/uL (4.3-5.7); RED CELL DISTRIBUTION WIDTH 12.6 % (11.7-14.4)
[2019-01-07 06:16] LABS: ANION GAP 11.1 mmol/L (8-16); BLOOD UREA NITROGEN 13 mg/dL (7-26); BUN/CREATININE RATIO 19 (6-25); CALCIUM 8.2 mg/dL (8.4-10.2); CARBON DIOXIDE 24 mmol/L (22-29); CHLORIDE 105 mmol/L (98-107); EST GLOMERULAR FILTRATION RATE > 60 ML/MIN (60-); GLUCOSE 153 mg/dL (74-118); POTASSIUM 4.1 mmol/L (3.5-5.1); SODIUM 136 mmol/L (136-145)
--- NOTE | 2019-01-07 06:59 | NUR ---
PT RESTING AND NO ACUTE DISTRESS NOTED .CALL LIGHT WITH IN REACH ,CONTINUE TO MONITOR REPORT GIVEN TO THE ONCOMING NURSE
[2019-01-07] MEDS: INSULIN LISPRO 100 UNIT/1 ML 3ML VIAL SQ SCH ×4 (07:30→21:00)
--- NOTE | 2019-01-07 07:30 | NUR ---
REC'D PATIENT AAOX3, LAYING IN SEMI-AGUILAR'S POSITION, OXYGEN BEING DELIVERED AT 3L/MIN VIA NC, IV TO RIGHT FA 20 GAUGE CLEAN AND INTACT, DRESSING TO RIGHT FOOT CLEAN AND INTACT AND ELEVATED. FOAM DRESSING TO THE SACRUM CLEAN AND INTACT. SIDE RAILS UP X2, BED IN LOWEST POSITION, AND CALL ESCALANTE WITHIN REACH.
[2019-01-07] MEDS: CYCLOSPORINE 75 MG PO SCH ×2 (08:58→21:00)
[2019-01-07] MEDS: SODIUM BICARBONATE 650 MG TAB PO SCH ×2 (08:59→18:00)
[2019-01-07] MEDS: FINASTERIDE 5 MG TAB PO SCH (08:59)
[2019-01-07] MEDS: TAMSULOSIN HCL 0.4 MG CAP PO SCH (08:59)
[2019-01-07] MEDS: BALSAM PERU/CASTOR OIL 5 GM OINT...G. TP SCH (08:59)
[2019-01-07] MEDS: DOCUSATE SODIUM 100 MG CAP PO SCH (08:59)
[2019-01-07] MEDS: AMLODIPINE BESYLATE 10 MG TAB PO SCH (09:00)
[2019-01-07] MEDS: PREDNISONE 5 MG TAB PO SCH (09:00)
[2019-01-07] MEDS: FUROSEMIDE 20 MG TAB PO SCH (09:01)
[2019-01-07] MEDS: ISOSORBIDE MONONITRATE 30 MG TAB CR PO SCH (09:01)
[2019-01-07] MEDS: RAMIPRIL 5 MG CAP PO SCH (09:01)
[2019-01-07] MEDS: MORPHINE SULFATE INJ 4 MG/ML INJ 1ML IV PRN (10:52)
--- NOTE | 2019-01-07 11:00 | NUR ---
NOTIFIED DR. RAPHAEL ABOUT PATIENT'S LEFT KNEE HURTING AND BECOMING SWOLLEN. WAITING FOR DR. RAPHAEL' RESPONSE.
--- NOTE | 2019-01-07 12:20 | NUR ---
DR. WALDRON ROUNDED ON PATIENT. STATED TO NURSE AND PATIENT THAT HE WILL LEAVE THE DRESSING TO THE RIGHT FOOT ON FOR ANOTHER 1-2 DAYS BEFORE HE REMOVES DRESSING AND FOR NWB ON THE RIGHT FOOT.
--- NOTE | 2019-01-07 16:27 | NUR ---
DR. RICHARDSON CALLED TO NOTIFY THAT HE WANTS TO HOLD BLOOD THINNERS DUE TO PATIENT LOSING TOO MUCH BLOOD DURING SURGERY AND MAYBE A POSSIBLE ANGIOGRAM.
--- NOTE | 2019-01-07 17:24 | NUR ---
DISCUSSED PT IN 3PM F/U ROUNDS. [facility] ORDERED XRAY OF L KNEE DUE TO SWELLING. MDR ADC 11/09/2018. DISCUSSED HOME HEALTH AND HOME IV ABX. NO ORDERS RECEIVED.
--- NOTE | 2019-01-07 18:04 | Diagnostic Imaging Report ---
Left complete knee, portable. CPT CODE: 66316. INDICATION: Pain, no trauma COMPARISON: None FINDINGS: No evidence of acute fracture or dislocation. Normal right, left knee. There is mild medial, lateral patellofemoral compartment narrowing. Moderate sized suprapatellar joint effusion. Extensive calcifications throughout the arterial structures. IMPRESSION: Moderate sized joint effusion. Mild degenerative changes of the knee. Signed by: Dr. Luciano Noel MD on 01/07/2019 6:00 PM
--- NOTE | 2019-01-07 18:07 | Progress Note ---
DATE: 01/07/2019 Cardiology Progress Note SUBJECTIVE: No new complaints today. OBJECTIVE: VITAL SIGNS: Temperature of 99.8, heart rate 85, blood pressure 124/66, and respiratory rate 18, O2 saturation 92%. BMI 26.4. GENERAL: In no acute distress, alert. NECK: No JVD. CHEST: Clear to auscultation. CARDIOVASCULAR: Regular rate and rhythm. Normal S1 and S2. No S3, no S4. No murmurs or rubs. ABDOMEN: Soft and nontender. EXTREMITIES: No edema. Right foot covered with dressings. CARDIOVASCULAR MEDICATIONS: Reviewed. Ramipril 10 mg daily, furosemide 20 mg daily, amlodipine 10 mg daily, simvastatin 10 mg at bedtime, clopidogrel 75 mg daily, metoprolol tartrate 50 mg every 8 hours, meropenem and vancomycin. LABORATORY STUDIES: Reviewed. Sodium 136, potassium 4.1, chloride 105, bicarbonate 24, BUN 13, creatinine 0.7, glucose 153. White blood cell 7.6, hemoglobin 9.2, platelets 263. INR 0.9. AST 17, ALT 12, alkaline phosphatase 73. ASSESSMENT: A 73-year-old man, kidney transplant recipient, on immunosuppressive therapy, history of diabetes mellitus type 2, hyperlipidemia, mild left ventricular hypertrophy and preserved left ventricular systolic function on recent echocardiogram, anemia, coronary artery disease with history of prior stents, remote and peripheral vascular disease suspected by Dopplers, presents with right 3rd toe osteomyelitis, now status post 3rd ray amputation on 01/06/2019. RECOMMENDATIONS: He has compressed hemostatic bandages in place. After coordinating care with Podiatry, had significant bleeding postop. Therefore, we will hold off on any angiography and possible intervention attempts for now until hemostasis confirmed, after removal of bandaging we will then assess. For continue current cardiovascular medications as needed. If any active bleeding issues ensue, hold antiplatelets. We will follow closely with you. MD JAMIE Mosquera/RUEL /[id number]
--- NOTE | 2019-01-07 18:43 | NUR ---
PATIENT IS ON HIS LEFT SIDE. NO S/S OF DISTRESS. BED IN LOWEST POSITION, SIDE RAILS UP X2, AND CALL ESCALANTE WITHIN REACH.
[2019-01-07] MEDS ORDERED: ACETAMINOPHEN 325 MG TAB PO PRN (19:00)
--- NOTE | 2019-01-07 19:24 | NUR ---
RECEIVED PT IN BED AOX3 . THIRD TOE OF RT FOOT AMPUTATED AND IS WITH DRESSING .RT FA WITH IV INFUSING NS AT 50ML/HR .DENIES PAIN . FAMILY AT THE BEDSIDE .CALL LIGHT WITH IN REACH .CONTINUE TO MONITOR
--- NOTE | 2019-01-07 19:53 | Progress Note ---
DATE: 01/07/2019 Medicine Progress Note SUBJECTIVE: The patient is doing well today with no other issues. Nurses stating that he is complaining of left knee pain, it is slightly swollen. X-ray has been ordered. PHYSICAL EXAMINATION: VITAL SIGNS: Temperature is 99.8, pulse 85, respiratory rate is 18, blood pressure 124/66, pulse ox 92% on room air. GENERAL: In no acute distress, alert and oriented x3, cooperative on examination. HEENT: Head is normocephalic and atraumatic. Eyes; pupils are equal, round, and reactive to light bilaterally. Extraocular movements are intact bilaterally. NECK: Supple. Good range of motion throughout. No evidence of any erythema or exudate in the posterior pharynx. Has poor dentition. PULMONARY: Clear to auscultation bilaterally. No wheezing, rales, or rhonchi. No crackles appreciated. CARDIOVASCULAR: Positive S1, S2. No murmurs, rubs, or gallops. ABDOMEN: Soft, nondistended, and nontender to palpation. Bowel sounds present. MUSCULOSKELETAL: Strength is 5/5 throughout. No evidence of any muscle deficits on examination. No weakness appreciated. NEUROLOGIC: Cranial nerves II through XII grossly intact. No evidence of any neurological deficits on exam. SKIN: Intact. Warm to touch. Good cap refill. PSYCHIATRIC: Normal affect and mood. EXTREMITIES: No edema. Good range of motion throughout. LABORATORY DATA: Labs show white count 7.6, hemoglobin 9.2, hematocrit 29, platelets of 263. Coagulations reviewed. Chemistry; reviewed and stable. IMPRESSION: 1. Osteomyelitis of the right third phalanx of the right foot, status post amputation performed on 01/06/2019. 2. Type 2 diabetes. 3. Hyperlipidemia. 4. Anemia. 5. donor kidney transplant. 6. Metabolic acidosis, resolved. PLAN: The patient had amputation on 01/06/2019 and local wound care by Podiatry. Continue with IV antibiotics. Nephrology following in relation to his kidney transplantation. 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 We will await for ID to get final recommendations in terms of antibiotic therapy. Otherwise, he could be discharged with home wound care and he will follow up as an outpatient with Podiatry. Jiries S Dahu, MD JSD/IRENEL /[id number]
[2019-01-07] MEDS: SIMVASTATIN 20 MG TAB PO SCH (21:16)
[2019-01-08] VITALS (8 sets, daily range): BP systolic 106–142; BP diastolic 55–68
[2019-01-08] MEDS: VANCOMYCIN HCL 1.25 GM in SODIUM CHLORIDE 0.9% 250ML 250 ML IV SCH ×2 (01:21→22:03)
[2019-01-08] MEDS: MEROPENEM 500MG/ NS 50ML 50 ML IV SCH ×3 (04:00→20:00)
[2019-01-08 05:50] LABS: BASOPHILS % 0.3 % (0.0-1.0); EOSINOPHILS # (AUTO) 0.2 (0.0-0.4); EOSINOPHILS % 2.2 % (0.0-6.0); HEMATOCRIT 26.7 % (38.2-49.6); HEMOGLOBIN 8.5 g/dL (14.0-18.0); LYMPHOCYTES # (AUTO) 1.2 (1.0-3.2); LYMPHOCYTES % 16.6 % (18.0-39.1); MEAN CORPUSCULAR HEMOGLOBIN 30.6 pg (28-32); MEAN CORPUSCULAR HGB CONC 31.8 g/dL (31-35); MONOCYTES # (AUTO) 0.7 (0.2-0.8); NEUTROPHILS # (AUTO) 5.2 (2.1-6.9); NEUTROPHILS % 70.5 % (38.7-80.0); PLATELET COUNT 260 x10e3/uL (140-360); RED BLOOD COUNT 2.78 x10e6/uL (4.3-5.7); RED CELL DISTRIBUTION WIDTH 12.6 % (11.7-14.4)
[2019-01-08] MEDS: METOPROLOL TARTRATE 50 MG TAB PO SCH ×3 (06:00→21:50)
[2019-01-08 06:25] LABS: ANION GAP 9.9 mmol/L (8-16); BLOOD UREA NITROGEN 17 mg/dL (7-26); BUN/CREATININE RATIO 24 (6-25); CALCIUM 8.2 mg/dL (8.4-10.2); CARBON DIOXIDE 24 mmol/L (22-29); CHLORIDE 106 mmol/L (98-107); EST GLOMERULAR FILTRATION RATE > 60 ML/MIN (60-); GLUCOSE 115 mg/dL (74-118); POTASSIUM 3.9 mmol/L (3.5-5.1); SODIUM 136 mmol/L (136-145)
--- NOTE | 2019-01-08 06:30 | NUR ---
PT C/O LEFT KNEE PAIN .MEDICATED WITH TYLENOL 650MG AND CONTINUE TO MONITOR .CALL LIGHT WITH REACH
--- NOTE | 2019-01-08 06:52 | NUR ---
RECEIVED PATIENT RESTING IN BED. NO ACUTE DISTRESS NOTED. DENIES PAIN OR DISCOMFORT. CALL LIGHT WITHIN REACH. BED IN THE LOWEST POSITION.
[2019-01-08] MEDS: SODIUM CHLORIDE 0.9% 1000ML 1,000 ML IV SCH ×2 (07:24→21:49)
[2019-01-08] MEDS: INSULIN LISPRO 100 UNIT/1 ML 3ML VIAL SQ SCH ×4 (07:30→21:00)
[2019-01-08] MEDS: DOCUSATE SODIUM 100 MG CAP PO SCH (08:51)
[2019-01-08] MEDS: AMLODIPINE BESYLATE 10 MG TAB PO SCH (08:51)
[2019-01-08] MEDS: ISOSORBIDE MONONITRATE 30 MG TAB CR PO SCH (08:51)
[2019-01-08] MEDS: SODIUM BICARBONATE 650 MG TAB PO SCH ×2 (08:51→16:21)
[2019-01-08] MEDS: FINASTERIDE 5 MG TAB PO SCH (08:51)
[2019-01-08] MEDS: RAMIPRIL 5 MG CAP PO SCH (08:51)
[2019-01-08] MEDS: PREDNISONE 5 MG TAB PO SCH (08:51)
[2019-01-08] MEDS: TAMSULOSIN HCL 0.4 MG CAP PO SCH (08:51)
[2019-01-08] MEDS: FUROSEMIDE 20 MG TAB PO SCH (08:51)
[2019-01-08] MEDS: CYCLOSPORINE 75 MG PO SCH ×2 (08:52→21:44)
[2019-01-08] MEDS: BALSAM PERU/CASTOR OIL 5 GM OINT...G. TP SCH (09:00)
--- NOTE | 2019-01-08 10:21 | NUR ---
NOTIFIED DR. RAPHAEL OF PATIENT'S KNEE X-RAY RESULTS AND ASKED IF HE WANTED TO CONSULT ORTHO, PER MD NOT AT THIS TIME.
--- NOTE | 2019-01-08 11:00 | NUR ---
SIGNED IMM FILED IN CHART AND LEFT COPY BEDSIDE WITH FAMILY. SPOKE WITH THEM ABOUT CHOICE FOR SNF WILL REVIEW AND LET ME KNOW CHOICE.
--- NOTE | 2019-01-08 13:52 | NUR ---
DISCUSSED IN BARRIER ROUNDS ON 2 IV ABX, CONSULT FOR MALINDA STATES WOULD LIKE TO DO AN ANGIO AFTER BANDAGES ARE REMOVED BUT MAY BE DONE OP.
[2019-01-08] MEDS: MORPHINE SULFATE INJ 4 MG/ML INJ 1ML IV PRN (15:30)
--- NOTE | 2019-01-08 15:30 | NUR ---
Progress Note- IM O/N;no events ROS: no f/c/s/N/V/D/ONEIL/cp/sob/vision changes/cp/sob v/s: revd PE: tired appearing anicteric ns1s2 mod bs soft nt nd right foot 3rd toe with gangrenous changes and odor; foot warm; DP 1+ skin dry flat affect a&ox3; ansari labs/meds; revd A/P: 73yoM Osteomyelitis of right 3rd phalanx DM2 HLD Mild anemia Metabolic acidosis Hyponatremia PLAN IV abx Immunosuppresants Consultation s/p amputation; Post op bleeding; Hb stable; Hba1c/LDL 6.3/33. Iron deficiency anemia- treat; Left knee effusion- moderate; PT; re-eval tomorrow; SNF delmisal Can Jeronimo MD, PhD. Can Jeronimo MD,PhD.
--- NOTE | 2019-01-08 17:21 | NUR ---
Nutrition Follow-up Note RD Recommendation for Physician: - Continue current diet as ordered Plan of Care: RD following, monitoring for tolerance and adequacy Nutrition reason for involvement: Follow up Primary Diagnose(s): R foot cellulitis, right 3rd toe gangrene PMH: CKD due to HTN, stroke, former smoker, right renal transplant on immunosuppresants, DM2, HLD, BPH Ht: 66in Wt: 160.04lb; 179lb BMI: 25.8kg/m2 IBW: 142lb RD Assessment: (01/08) Visited pt in the room. Per family, pt has been eating well. No complains of nausea or vomiting. Constipation was resolved with Colace. No chewing or swallowing difficulty reported. Current diet is appropriate and adequate. (01/02) Chart reviewed. Labs and meds reviewed. 73yo M, who was admitted for R foot cellulitis. Currently on insulin, abx, and NaCl. Visited pt in the room. Pt reported good appetite with 100% observed lunch intake. No complains of nausea or vomiting. Pt denied any chewing or swallowing difficulty. Pt reported of 6lbs weight loss in 6 months with unknown cause. No physical sign of muscle or fat loss upon observation. Pt ate well [employer] REPRESENT[employer]IVE. Will continue to monitor and follow. Current Diet: renal diabetic diet Malnutrition Evaluation (01/02/2019) The patient does not meet criteria for a specified degree of malnutrition at this time. Will re-evaluate at follow-up as appropriate. Diet Education Needs Assessment: Diet education not indicated. Nutrition Care Level: low Signed: Rahel Esteves, MS, RD, LD
[2019-01-08 18:58] LABS: % IRON SATURATION 8 % (15-50); IRON 12 ug/dL (65-175); TOTAL IRON BINDING CAPACITY 143 ug/dL (261-478); TRANSFERRIN 102 mg/dL (174-364)
--- NOTE | 2019-01-08 19:16 | NUR ---
REPORT GIVEN TO ONCOMING NURSE, PATIENT IS RESTING IN BED. NO ACUTE DISTRESS NOTED, RESPIRATIONS EVEN AND UNLABORED. CALL LIGHT WITHIN REACH. BED IN THE LOWEST POSITION.
--- NOTE | 2019-01-08 19:58 | NUR ---
RECEIVED PT IN BED AOX3 .DENIES PAIN NOW RESPIRATIONS ARE EVEN AND UNLABORED .CALL LIGHT WITH IN REACH .CONTINUE TO MONITOR
[2019-01-08] MEDS: SIMVASTATIN 20 MG TAB PO SCH (21:49)
--- NOTE | 2019-01-08 23:43 | Progress Note ---
DATE: 01/08/2019 Cardiology Progress Note. SUBJECTIVE: No new complaints today. OBJECTIVE: VITAL SIGNS: Temperature 96.8, heart rate 67, blood pressure 118/63, respiratory rate 18, O2 saturation 96%. GENERAL: In no acute distress. Alert. NECK: No JVD. CHEST: Clear to auscultation. CARDIOVASCULAR: Regular rate and rhythm. Normal S1, S2. No S3 or S4. ABDOMEN: Soft, nontender. EXTREMITIES: Right foot covered with dressings and hemostatic bandages. CARDIOVASCULAR MEDICATIONS: Reviewed. Ramipril 10 mg daily, prednisone 5 mg daily, immunosuppressants, furosemide 20 mg daily, simvastatin 10 mg at bedtime, amlodipine 10 mg daily, clopidogrel 75 mg daily, tamsulosin 0.4 mg daily, metoprolol tartrate 50 mg every 8 hours. LABORATORY DATA: Studies reviewed. Sodium 136, potassium 3.9, chloride 106, bicarbonate 24, BUN 17, creatinine 0.70, glucose 115. White blood cell 7.3, hemoglobin 8.5, platelets 260. INR 0.9. AST 17, ALT 12, alkaline phosphatase 73. ASSESSMENT: A 73-year-old man with orthotopic renal transplantation on immunosuppressive therapy, hypertension, dyslipidemia, and diabetes, PVD suggested by Doppler ultrasound, is status post right 3rd ray amputation complicated by pronounced postop bleeding, now with hemostatic bandages. RECOMMENDATIONS: Clopidogrel is currently on hold. Hemostatic bandages in place. H and H being monitored. Once hemostatic bandage are uncovered and if hemostasis persists and depending on wound healing, we will consider angiography and possible endovascular revascularization to right lower extremity arterial vessels. Renal protection strategies would be strongly considered and given status post renal transplantation status. For now, continue current cardiovascular medications. Shaquille Plaza MD AFV/MODL /[id number]
[2019-01-09] VITALS (10 sets, daily range): BP systolic 93–116; BP diastolic 51–62
[2019-01-09] MEDS: MEROPENEM 500MG/ NS 50ML 50 ML IV SCH ×3 (04:00→21:44)
[2019-01-09] MEDS: SODIUM CHLORIDE 0.9% 1000ML 1,000 ML IV SCH (04:50)
--- NOTE | 2019-01-09 05:27 | NUR ---
PT RESTING .DENIES PAIN DRESSING AT THE RT LEG DRY AND INTACT .CALL LIGHT WITH IN REACH .CONTINUE TO MONITOR
[2019-01-09] MEDS: METOPROLOL TARTRATE 50 MG TAB PO SCH ×3 (06:00→21:44)
--- NOTE | 2019-01-09 06:54 | NUR ---
RECEIVED PATIENT RESTING IN BED. NO ACUTE DISTRESS NOTED. DENIES PAIN OR DISCOMFORT. CALL LIGHT WITHIN REACH. BED IN THE LOWEST POSITION.
--- NOTE | 2019-01-09 07:05 | NUR ---
Progress Note- IM O/N;no events ROS: no f/c/s/N/V/D/ONEIL/cp/sob/vision changes/cp/sob v/s: revd PE: tired appearing anicteric ns1s2 mod bs soft nt nd right foot 3rd toe with gangrenous changes and odor; foot warm; DP 1+ skin dry flat affect a&ox3; ansari labs/meds; revd A/P: 73yoM Osteomyelitis of right 3rd phalanx DM2 HLD Mild anemia Metabolic acidosis Hyponatremia PLAN IV abx Immunosuppresants Consultation s/p amputation; Post op bleeding; Hb stable; Hba1c/LDL 6.3/33. Iron deficiency anemia- treat; Left knee effusion- moderate; PT; re-eval tomorrow; SNF eval 01/09 f/u with CM for d/c. Can Jeronimo MD, PhD.
--- NOTE | 2019-01-09 07:10 | NUR ---
REPORT GIVEN TO THE ON COMING NURSE
[2019-01-09] MEDS ORDERED: ACETAMINOPHEN 325 MG TAB PO PRN (07:30)
[2019-01-09] MEDS: INSULIN LISPRO 100 UNIT/1 ML 3ML VIAL SQ SCH ×4 (08:24→21:44)
[2019-01-09] MEDS: DOCUSATE SODIUM 100 MG CAP PO SCH (08:34)
[2019-01-09] MEDS: CYCLOSPORINE 75 MG PO SCH ×2 (08:34→21:44)
[2019-01-09] MEDS: TAMSULOSIN HCL 0.4 MG CAP PO SCH (08:34)
[2019-01-09] MEDS: RAMIPRIL 5 MG CAP PO SCH (08:34)
[2019-01-09] MEDS: ISOSORBIDE MONONITRATE 30 MG TAB CR PO SCH (08:35)
[2019-01-09] MEDS: PREDNISONE 5 MG TAB PO SCH (08:35)
[2019-01-09] MEDS: FINASTERIDE 5 MG TAB PO SCH (08:35)
[2019-01-09] MEDS: BALSAM PERU/CASTOR OIL 5 GM OINT...G. TP SCH (08:35)
[2019-01-09] MEDS: SODIUM BICARBONATE 650 MG TAB PO SCH ×2 (08:35→16:58)
[2019-01-09] MEDS: AMLODIPINE BESYLATE 10 MG TAB PO SCH (08:35)
[2019-01-09] MEDS: FUROSEMIDE 20 MG TAB PO SCH (08:35)
[2019-01-09] MEDS: TRAMADOL HCL 50 MG TAB PO SCH ×2 (13:50→21:44)
--- NOTE | 2019-01-09 16:50 | NUR ---
RIGHT ARM NOTED TO BE SWOLLEN. PATIENT'S IV IS PATENT BUT WILL DC TO GIVE ARM A REST. ELEVATED ARM AND WILL ATTEMPT TO GET AN IV ACCESS LATER.
--- NOTE | 2019-01-09 17:50 | NUR ---
PSYCHIATRIC RN TO ATTEMPT TO OBTAIN IV ACCESS ON PATIENT.
--- NOTE | 2019-01-09 19:09 | Progress Note ---
DATE: 01/09/2019 Cardiology Progress Note SUBJECTIVE: Denies any chest discomfort or any shortness of breath. OBJECTIVE: VITAL SIGNS: Temperature 97.8, heart rate 76, blood pressure 114/52, respiratory rate 17, O2 saturation 90% at room air, BMI 28.8. GENERAL: In no acute distress, alert. NECK: No JVD. CHEST: Clear to auscultation. CARDIOVASCULAR: Regular rate and rhythm. Normal S1 and S2. No S3 or S4. ABDOMEN: Soft, nontender. EXTREMITIES: Trace edema. Right foot wound covered with dressings. CARDIOVASCULAR MEDICATIONS: Reviewed. Ramipril 10 mg daily, isosorbide mononitrate 30 mg daily, prednisone 5 mg daily, furosemide 20 mg daily, simvastatin 10 mg at bedtime, amlodipine 10 mg daily, clopidogrel 75 mg daily, tamsulosin 0.4 mg daily, metoprolol tartrate 50 mg every 8 hours. LABORATORY DATA: Studies reviewed. Sodium 136, potassium 3.9, chloride 106, bicarbonate 24, BUN 17, creatinine 0.7, glucose of 115. White blood cell 7.3, hemoglobin 8.5, platelets 260. INR 0.9. AST 17, ALT 12, alkaline phosphatase 73. ASSESSMENT: 1. A 73-year-old man with peripheral arterial disease suspected by Doppler, status post 3rd ray amputation for osteomyelitis. 2. Kidney transplant recipient, on immunosuppressive therapy. 3. Hypertension. 4. Dyslipidemia. 5. Diabetes mellitus. 6. Anemia. RECOMMENDATIONS: 1. Significant bleeding post 3rd ray amputation now status post hemostatic bandages. We will coordinate with Podiatry regarding wound healing and whether adequate hemostasis remains in place. Depending on this may proceed with angiography and possible endovascular revascularization. So, we will coordinate renal protection strategies in conjunction with Nephrology. 2. Continue current cardiovascular medications. MD JAMIE Mosquera/RUEL /[id number]
--- NOTE | 2019-01-09 19:35 | NUR ---
REPORT GIVEN TO ONCOMING NURSE, PATIENT IS RESTING IN RECLINER WITH EYES OPEN, NO ACUTE DISTRESS NOTED, NO S/S OF PAIN NOTED. CALL LIGHT WITHIN REACH.
[2019-01-09] MEDS: SIMVASTATIN 20 MG TAB PO SCH (21:44)
[2019-01-09] MEDS: VANCOMYCIN HCL 1.25 GM in SODIUM CHLORIDE 0.9% 250ML 250 ML IV SCH (22:29)
[2019-01-10] VITALS: BP 124/57
[2019-01-10] MEDS: MEROPENEM 500MG/ NS 50ML 50 ML IV SCH ×2 (03:38→12:16)
[2019-01-10] MEDS: TRAMADOL HCL 50 MG TAB PO SCH ×2 (05:53→14:00)
[2019-01-10] MEDS: METOPROLOL TARTRATE 50 MG TAB PO SCH ×2 (05:53→14:55)
--- NOTE | 2019-01-10 06:55 | NUR ---
D/C summary Principal Dx: Osteomyelitis of right 3rd phalanx s/p amputation Iron-deficiency anemia Left knee effusion- mild-mod; Mild anemia Metabolic acidosis Hyponatremia Secondary Dx: DM2 HLD PLAN IV abx Immunosuppresants Consultation s/p amputation; Post op bleeding; Hb stable; Hba1c/LDL 6.3/33. Iron deficiency anemia- treat; Left knee effusion- moderate; PT; re-eval tomorrow; SNF eval 01/09 f/u with CM for d/c. 01/10 d/c to facility d/c SNF stable f/u PCP 1 week and podiatry 2 weeks d/c >35mins Can Jeronimo MD, PhD.
[2019-01-10] MEDS: INSULIN LISPRO 100 UNIT/1 ML 3ML VIAL SQ SCH ×2 (07:30→11:30)
--- NOTE | 2019-01-10 07:30 | NUR ---
PT UP IN BED AAOX3,DENIES PAIN,NO DISTRESS NTOED.
[2019-01-10 08:13] VITALS: BP 116/58
[2019-01-10 08:28] VITALS: BP 116/58
[2019-01-10] MEDS: TAMSULOSIN HCL 0.4 MG CAP PO SCH (08:31)
[2019-01-10] MEDS: ISOSORBIDE MONONITRATE 30 MG TAB CR PO SCH (08:31)
[2019-01-10] MEDS: RAMIPRIL 5 MG CAP PO SCH (08:31)
[2019-01-10] MEDS: DOCUSATE SODIUM 100 MG CAP PO SCH (08:31)
[2019-01-10] MEDS: AMLODIPINE BESYLATE 10 MG TAB PO SCH (08:32)
[2019-01-10] MEDS: SODIUM BICARBONATE 650 MG TAB PO SCH (08:32)
[2019-01-10] MEDS: FINASTERIDE 5 MG TAB PO SCH (08:32)
[2019-01-10] MEDS: CYCLOSPORINE 75 MG PO SCH (08:39)
--- NOTE | 2019-01-10 09:00 | NUR ---
CALL RECEIVED FROM THE PT'S DTR W CHOICE FOR SNF. STATES SHE WOULD LIKE HER FATHER TRANSFERRED TO [facility]. CONTACT: RUPAL VILLASENOR @ [phone].
[2019-01-10] MEDS: BALSAM PERU/CASTOR OIL 5 GM OINT...G. TP SCH (09:41)
[2019-01-10] MEDS: FUROSEMIDE 20 MG TAB PO SCH (09:41)
--- NOTE | 2019-01-10 10:58 | NUR ---
CALL MADE TO [facility] @ [phone]. NO ANSWER. NO VM. CALL TO [facility] @ [phone]. SPOKE W RUPAL VILLASENOR. REQUESTED CLINICALS BE FAXED TO [phone]. CLINICALS FAXED TO [facility]. WILL AWAIT CALL BACK W [place]. RTF INITIATED.
--- NOTE | 2019-01-10 14:30 | NUR ---
REPORT CALLED TO JADA REBOLLEDO .AMBULANCE CALLED.
--- NOTE | 2019-01-10 15:25 | NUR ---
PT DISCHARGED TO [facility] VIA [facility],RT FA IV IN PLACE.
== END 2019-01-10 15:27 | DRG 617 ==
LOC: ER 14:40 → ERHOLD 18:35 → MED/SURG3 20:10
PROVIDERS: ADMIT Internal Medicine; ATTEND Internal Medicine
PROC: 0JUQ0KZ Supplement of Right Foot Subcutaneous Tissue and Fascia with Nonautologous Tissue Substitute, Open Approach (ICD-10-PCS; 2019-01-06)
PROC: 0Y6M0Z6 Detachment at Right Foot, Complete 3rd Ray, Open Approach (ICD-10-PCS; principal; 2019-01-06 10:00)
DX: E11.69 Type 2 diabetes mellitus with other specified complication (principal); L03.115 Cellulitis of right lower limb; Z94.0 Kidney transplant status; M86.171 Other acute osteomyelitis, right ankle and foot; E87.2 Acidosis; E87.1 Hypo-osmolality and hyponatremia; I13.2 Hypertensive heart and chronic kidney disease with heart failure and with stage 5 chronic kidney disease, or end stage renal disease; D62 Acute posthemorrhagic anemia; E11.621 Type 2 diabetes mellitus with foot ulcer; L97.519 Non-pressure chronic ulcer of other part of right foot with unspecified severity; I73.9 Peripheral vascular disease, unspecified; S91.214A Laceration without foreign body of right lesser toe(s) with damage to nail, initial encounter; L03.031 Cellulitis of right toe; I25.10 Atherosclerotic heart disease of native coronary artery without angina pectoris; H54.7 Unspecified visual loss; H02.401 Unspecified ptosis of right eyelid; E78.5 Hyperlipidemia, unspecified; Z95.5 Presence of coronary angioplasty implant and graft; Z79.899 Other long term (current) drug therapy; N18.9 Chronic kidney disease, unspecified; Z79.4 Long term (current) use of insulin; D64.9 Anemia, unspecified; Z87.891 Personal history of nicotine dependence; Z86.73 Personal history of transient ischemic attack (TIA), and cerebral infarction without residual deficits; N40.0 Benign prostatic hyperplasia without lower urinary tract symptoms; I77.0 Arteriovenous fistula, acquired; E11.22 Type 2 diabetes mellitus with diabetic chronic kidney disease; I50.9 Heart failure, unspecified; N18.6 End stage renal disease; M25.462 Effusion, left knee
CPT/HCPCS: 36415; 80048; 80053; 80061; 80202; 82728; 82948; 83036; 83540; 84466; 85014; 85018; 85025; 85610; 85730; 88304; 88305; 88311; 93005; 93306; 93926; 96361; 97139; 99284; J2001; J2270; J3370; J7030; J7050; J7512; J7515

== ENCOUNTER → 2019-03-17 | Day surgery (SDC) | payer MEDICARE, OTHER ==
[2019-03-13 11:38] LABS: BASOPHILS % 0.3 % (0.0-1.0); EOSINOPHILS # (AUTO) 0.1 (0.0-0.4); EOSINOPHILS % 1.2 % (0.0-6.0); HEMATOCRIT 28.1 % (38.2-49.6); HEMOGLOBIN 8.8 g/dL (14.0-18.0); LYMPHOCYTES # (AUTO) 1.3 (1.0-3.2); LYMPHOCYTES % 13.2 % (18.0-39.1); MEAN CORPUSCULAR HEMOGLOBIN 28.3 pg (28-32); MEAN CORPUSCULAR HGB CONC 31.3 g/dL (31-35); MEAN CORPUSCULAR VOLUME 90.4 fL (81-99); MONOCYTES # (AUTO) 0.7 (0.2-0.8); MONOCYTES % 6.6 % (4.4-11.3); NEUTROPHILS # (AUTO) 7.9 (2.1-6.9); NEUTROPHILS % 77.9 % (38.7-80.0); PLATELET COUNT 387 x10e3/uL (140-360); RED BLOOD COUNT 3.11 x10e6/uL (4.3-5.7); RED CELL DISTRIBUTION WIDTH 14.5 % (11.7-14.4)
[2019-03-13 11:59] LABS: ANION GAP 10.4 mmol/L (8-16); BLOOD UREA NITROGEN 36 mg/dL (7-26); BUN/CREATININE RATIO 44 (6-25); CALCIUM 9.6 mg/dL (8.4-10.2); CARBON DIOXIDE 22 mmol/L (22-29); CHLORIDE 102 mmol/L (98-107); CREATININE, SERUM 0.82 mg/dL (0.72-1.25); EST GLOMERULAR FILTRATION RATE > 60 ML/MIN (60-); GLUCOSE 125 mg/dL (74-118); POTASSIUM 4.4 mmol/L (3.5-5.1); SODIUM 130 mmol/L (136-145)
--- NOTE | 2019-03-13 12:54 | Diagnostic Imaging Report ---
Exam: PA and lateral chest radiograph Clinical history: Preoperative clearance Findings: There is no evidence of pulmonary consolidation, pleural effusion, or pneumothorax. Mild scarring is noted in the left lung base. Mild thickening of the right horizontal fissure is also noted. The cardiac size is within normal limits. The regional osseous structures are unremarkable. Impression: 1. No radiographic evidence of acute cardiorespiratory disease. Signed by: Dr. Antelmo Robles MD on 03/13/2019 12:50 PM
[~2019-03-17] MED LIST: ALTACE10 MG PO; AREDS; BETAMETHASONE DISODIUM PHOS 6 MG/ML VIAL ONE; BUPIVACAINE HCL 0.5% INJ 30 ML VIAL INJ ONE; CEFAZOLIN SOD 1 GM/NS 50ML 100 ML IV ONE; CLOPIDOGREL75 MG PO; CYCLOSPORINE25 MG PO; DEXAMETHASONE SOD PHOS INJ 4 MG/ML VIAL ONE; DIALYVITE TABL1 EACH; FENTANYL CITRATE/PF 100MCG/2 ML INJ ONE; FINASTERIDE5 MG PO; FLOMAX0.4 MG PO; FUROSEMIDE40 MG PO; KETOROLAC TROMETHAMINE 30 MG/ML VIAL ONE; LIDOCAINE HCL 1% LOCAL INJ 20 ML VIAL ONE; LIDOCAINE HCL 2% LOCAL INJ 5 ML SDV VIAL INJ ONE; METFORMIN HCL500 MG PO; METOPROLOL TART50 MG PO; MULTIVITAMIN; MUPIROCIN 2% OINT 22 GM TUBE ONE; NIZATIDINE150 MG; NORVASC10 MG PO; ONDANSETRON HCL INJ 2MG/ML 2ML 2 MG/ML VIAL ONE; PREDNISONE5 MG PO; PROPOFOL IV EMULSION 10 MG/ML 20 ML VIAL ONE; SEVOFLURANE INHAL SOLN 250 ML PEN BTL ONE; TRADJENTA5 MG PO; VITAMIN D32000 UNIT; ZOCOR20 MG PO
--- OUTSIDE RECORDS SUMMARY | 2019-03-17 06:16 | XMS REPORT ---
[facility] Address Unknown Phone Unavailable Care Team Providers Care Heat Treat Furnace Operator Name Role Phone KAR WALDRON Unavailable Unavailable KVNG RAPHAEL Unavailable Unavailable Problems This patient has no known problems. Allergies, Adverse Reactions, Alerts This patient has no known allergies or adverse reactions. Medications This patient has no known medications. Results Test Description Test Time Test Comments Text Results Atomic Results Result Comments CHEST 2 VIEWS 2019-03-13 12:49:00 [place] [address] Patient Name: SUNNY FARMER MR #: [id number] : 1945 Age/Sex: 73/M Req #: [id number] Adm Physician: Ordered by: KAR WALDRON DPM Report #: [id number] Location: OR Room/Bed: Procedure: [id number] DX/CHEST 2 VIEWS Exam Date: Exam Time: REPORT STATUS: Signed Exam: PA and lateral chest radiograph Clinical history: Preoperative clearance Findings: There is no evidence of pulmonary consolidation, pleural effusion, or pneumothorax. Mild scarring is noted in the left lung base. Mild thickening of the right horizontal fissure is also noted. The cardiac size is within normal limits. The regional osseous structures are unremarkable. Impression: 1. No radiographic evidence of acute cardiorespiratory disease. Signed by: Dr. Antelmo Robles MD on 03/13/2019 12:50 PM Dictated By: BRANDON ROBLES MD 125 Transcribed By: MARIANA on 03/13/19 125 COPY TO: KAR WALDRON DPPresley KNEE LEFT THREE VIEWS 2019-01-07 17:57:00 [place] [address] Patient Name: SUNNY FARMER MR #: [id number] : 1945 Age/Sex: 73/M Req #: [id number] Adm Physician: KVNG RAPHAEL MD Ordered by: DAVE PETTY MD Report #: [id number] Location: [facility] Room/Bed: [facility] Procedure: [id number] DX/KNEE LEFT THREE VIEWS Exam Date: 01/07/19 Exam Time: 1735 REPORT STATUS: Signed Left complete knee, portable. CPT CODE: 17048. INDICATION: Pain, no trauma COMPARISON: None FINDINGS: No evidence of acute fracture or dislocation. Normal right, left knee. There is mild medial, lateral patellofemoral compartment narrowing. Moderate sized suprapatellar joint effusion. Extensive calcifications throughout the arterial structures. IMPRESSION: Moderate sized joint effusion. Mild degenerative changes of the knee. Signed by: Dr. Jay Noel MD on 01/07/2019 6:00 PM Dictated By: JAY NOEL MD 1800 Transcribed By: MARIANA on 01/07/19 1800 COPY TO: DAVE PETTY MD MRI FOOT RIGHT WOW 2019-01-05 14:03:00 [place] [address] Patient Name: SUNNY FARMER MR #: [id number] : 1945 Age/Sex: 73/M Req #: [id number] Adm Physician: KVNG RAPHAEL MD Ordered by: YI VARGAS MD Report #: [id number] Location: [place] [address] Room/Bed: [facility] Procedure: [id number] MRI/MRI FOOT RIGHT WOW Exam Date: Exam Time: REPORT STATUS: Signed TECHNIQUE: Magnetic resonance imaging of the RIGHT foot was perf ormed without and with injected contrast. 14 cc gadolinium HISTORY: Pain COMPARISON: None available. DISCUSSION: Resorption of the distal phalanx with soft tissue irregularity. Heterogeneous signal within the residual distal phalangeal stump and middle phalanx. Mild edema within the proximal phalanx without T1 replacement. Intramedullary no abnormality within the first metatarsal. Ulceration. Diffuse subcutaneous swelling foot. IMPRESSION: Probable osteomyelitis distal and middle phalanx third toe Signed by: Dr. Sienna Stover M.D. on 01/05/2019 2:08 PM Dictated By: SIENNA STOVER MD 1408 Transcribed By: MARIANA on 01/05/19 1408 COPY TO: YI VARGAS MD FOOT RIGHT COMPLETE 2019-01-01 18:53:00 [place] [address] Patient Name: SUNNY FARMER MR #: [id number] : 1945 Age/Sex: 73/M Req #: [id number] Adm Physician: KVNG RAPHAEL MD Ordered by: TAMICA BERRY MD Report #: [id number] Location: [facility] Unit/Bed: [place] [address] Procedure: [id number] DX/FOOT RIGHT COMPLETE Exam Date: 01/01/19 Exam Time: 1834 REPORT STATUS: Signed RIGHT FOOT - 3 Images HISTORY: Gangrene third toe, swelling, diabetic COMPARISON: None available. FINDINGS: Overlying artifacts limit bone detail. Bones: Attenuation and cortical irregularity involving the tuft of the third toe. Joints: Moderate hallux valgus deformity. Soft tissues: Apparent soft tissue defect at the distal aspect of the third toe. Nonspecific soft tissue swelling. IMPRESSION: Findings compatible with osteomyelitis involving the distal phalanx of the third toe. Signed by: Dr. Yaya Merrill D.O., M.M.M. on 01/01/2019 6:55 PM Dictated By: YAYA MERRILL DO 54 Transcribed By: MARIANA on 01/01/191854 COPY TO: TAMICA BERRY MD
--- OUTSIDE RECORDS SUMMARY | 2019-03-17 06:16 | XMS REPORT | Clinical Summary ---
Author Author [facility] Organization [facility] Address Unknown Phone Unavailable Care Team Providers Care Chain Mender Name Role Phone Doreen Suh MD PCP [...] Encounters Care Team Description Date Type Specialty Janette Espinoza RN 01/08/2019 Documentation Doreen Suh MD Hyperlipidemia, unspecified hyperlipidemia type 09/17/2018 Refill Internal Medicine Marielos Roche MSW 09/13/2018 Social Work Transplant Doreen Suh MD Type 2 diabetes mellitus with diabetic polyneuropathy, without long-term current use of insulin (HCC) (Primary Dx); Annual physical exam; Current chronic use of systemic steroids; Needs flu shot; 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; Essential hypertension; -donor kidney transplant 05/27/2018 Office Visit Internal Medicine Bernice Meadows MD Hyperlipidemia, unspecified hyperlipidemia type 05/02/2018 Refill Internal Medicine after 03/16/2018 Immunizations Name Dates Previously Given Next Due [...] Taken Vital Sign Reading 05/27/2018 9:22 AM MANAGER ANIMAL Blood Pressure 137/68 05/27/2018 9:22 AM MANAGER ANIMAL Pulse 69 05/27/2018 9:22 AM MANAGER ANIMAL Temperature 36.4 C (97.6 F) 05/27/2018 9:22 AM MANAGER ANIMAL Respiratory Rate 18 05/27/2018 9:22 AM MANAGER ANIMAL Oxygen Saturation 96% - Inhaled Oxygen - Concentration 05/27/2018 9:22 AM MANAGER ANIMAL Weight 72.6 kg (160 lb) 05/27/2018 9:22 AM MANAGER ANIMAL Height 167.6 cm (5' 6") 05/27/2018 9:22 AM MANAGER ANIMAL Body Mass Index 25.82 Plan of Treatment Health Maintenance Due Date Last Done Comments HEMOGLOBIN A1C 01/30/2017 08/02/2016, 02/09/2016, 11/01/2015, Additional history exists Results Not on fileafter 03/16/2018 Insurance Payer Benefit Subscriber ID Type Phone Address Plan / Group MEDICARE MEDICARE A xxxxxxxxxxx Medicare B MCR SUPPLEMENT/INDIVIDUAL GENERIC xxxxxxxxx Med[employer]ap MEDICARE SUPPLEMENT Advance Directives For more information, please contact: [facility] [address] [place] [id number] Date Inactivated Comments Code Status Date Activated 07/29/2015 8:09 PM Full Code 07/26/2015 6:32 PM This code status was determined by: Patient
--- NOTE | 2019-03-17 09:43 | Diagnostic Imaging Report ---
Exam: Right foot 2 views Comparison: March 03, 2019 Clinical history: Status post foot surgery Findings: The patient is status post partial amputation of the 1st-5th digits at the midshaft of the metatarsals. The remainder of the visualized osseous structures demonstrate no evidence of acute fracture or malalignment. Atherosclerotic calcification of the posterior tibial and dorsalis pedis vessels are noted. Impression: 1. Status post partial dictation of the 1st-5th digits with postoperative changes. Signed by: Dr. Antelmo Robles MD on 03/17/2019 9:39 AM
[2019-03-17 10:12] VITALS: BP 135/68
--- NOTE | 2019-03-17 12:05 | Operative Report ---
DATE OF PROCEDURE: 03/17/2019 SURGEON: Pablo Yoon DPM PREOPERATIVE DIAGNOSES: 1. Abscess, right foot. 2. Gangrene, right foot. 3. Grade 3 ulcer, right foot. 4. Equinus deformity, right foot. POSTOPERATIVE DIAGNOSES: Confirmed. OPERATIVE PROCEDURES: 1. I and D of abscess down to bone. 2. Transmetatarsal amputation, right foot. 3. Achilles tendon lengthening, right foot. 4. Rotational flap closure, right foot. 5. Intraoperative use of fluoroscopy. 6. Application of posterior splint. ANESTHESIA: General. HEMOSTASIS: Esmarch bandage. PROCEDURE IN DETAIL: The patient was taken into the operating room, placed on the operating table in supine position. Following induction of general anesthesia by the anesthesiologist, Webril wraps were placed in the patient's right thigh followed by application of right thigh tourniquet. The right lower extremity was then prepped and draped in the usual aseptic manner and following procedures were then performed. Procedure #1: Achilles tendon lengthening, right foot: Attention was directed to the posterior aspect of the right heel where three stab incisions were performed 2 cm proximal to the insertion of Achilles tendon midline through the tendon. The distal most proximal stab incision was entered midline through the Achilles tendon and exited medially. The middle stab incision was then entered midline and entered laterally. At this point, the foot was then dorsiflexed to past 90 degrees and the Achilles tendon was felt to lengthen to allow for proper dorsiflexion of the foot. At this point, an Esmarch bandage was then applied up to the ankle joint area to allow for hemostasis. Procedure #2: I and D of abscess, right foot: Attention was then directed to the dorsal aspect of the right foot where an abscess was encountered overlying the grade 3 ulceration and abscess is debrided down to bone. Purulent drain was drained and cultured for aerobic and anaerobic growth. Secondary to the infection, a transmetatarsal amputation was then performed. Procedure #3: Transmetatarsal amputation was then performed: A dorsal incision was then performed overlying the metatarsals 1 through 5. The incision was then deepened down to the metatarsal shaft preserving the metatarsal parabola utilizing oscillating saw. The forefoot was then disarticulated and sent for pathological analysis. Meticulous dissection was performed to preserve a viable plantar flap. Procedure #4: Rotational flap closure: The incision was then deepened more proximal medially and dorsal laterally to allow for a plantar flap to close with minimal skin tension. At this point, the Esmarch bandage was then released and all ligators or pumpers were ligated or bovied as necessary. All areas were then copiously flushed with sterile antibiotic solution suction and the flap was then rotated upward and laterally and utilizing 2-0 Vicryl, 3-0 Vicryl, and 3-0 nylon. The flap was reapproximated with minimal skin tension. Procedure #5: Intraoperative use of fluoroscopy was then used to make sure proper metatarsal parabola was preserved. Then, approximately 15 mL of 0.5% plain Marcaine plus 10 mL of 1% Xylocaine plain were used to achieve local anesthesia of above-mentioned surgical area. Sterile dressing was applied. Procedure #6: Application of a properly placed posterior splint was then applied keeping the foot at 90 degrees with respect to the leg to try for any type of postop complications. The patient was then transferred from the OR to recovery with vital signs stable and neurovascular status intact. No intraoperative complications were encountered. Blood loss from the surgery was less than 40-50 mL. The patient to remain nonweightbearing with the aid of wheelchair. He is to follow up within one week in the office. The patient and patient's family member understands that no warrantees or guarantees were given. If not responsive, may need a more proximal amputation, which may even include a [id number] amputation. GARCIA Sharma/RUEL /[id number]
== END | disposition home or self-care (01) ==
LOC: OR 05:37
PROVIDERS: ATTEND Podiatrist Foot Surgery
DX: M86.671 Other chronic osteomyelitis, right ankle and foot (principal); I96 Gangrene, not elsewhere classified; M21.6X2 Other acquired deformities of left foot; L97.519 Non-pressure chronic ulcer of other part of right foot with unspecified severity; L02.818 Cutaneous abscess of other sites; E11.9 Type 2 diabetes mellitus without complications; I25.10 Atherosclerotic heart disease of native coronary artery without angina pectoris; I10 Essential (primary) hypertension; Z91.040 Latex allergy status; Z01.810 Encounter for preprocedural cardiovascular examination; Z01.812 Encounter for preprocedural laboratory examination; Z01.818 Encounter for other preprocedural examination; Z79.02 Long term (current) use of antithrombotics/antiplatelets; Z79.84 Long term (current) use of oral hypoglycemic drugs; Z86.73 Personal history of transient ischemic attack (TIA), and cerebral infarction without residual deficits; Z94.0 Kidney transplant status; Z95.820 Peripheral vascular angioplasty status with implants and grafts
CPT/HCPCS: 27685; 28805; 36415 ×2; 71046; 73620; 80048; 82948; 85025; 87071; 87075; 87186; 87205; 88307; 88311; 89060; 93005; J0690; J0720; J1100; J1885; J2001 ×2; J2405; J2704; J3010; 88304

== ENCOUNTER 2022-05-16 12:56 | Outpatient (RCR) | payer MEDICARE, OTHER ==
[~2022-05-16 12:56] MED LIST changes: -BETAMETHASONE DISODIUM PHOS 6 MG/ML VIAL ONE; -BUPIVACAINE HCL 0.5% INJ 30 ML VIAL INJ ONE; -CEFAZOLIN SOD 1 GM/NS 50ML 100 ML IV ONE; -DEXAMETHASONE SOD PHOS INJ 4 MG/ML VIAL ONE; -FENTANYL CITRATE/PF 100MCG/2 ML INJ ONE; -KETOROLAC TROMETHAMINE 30 MG/ML VIAL ONE; -LIDOCAINE HCL 1% LOCAL INJ 20 ML VIAL ONE; -LIDOCAINE HCL 2% LOCAL INJ 5 ML SDV VIAL INJ ONE; -MUPIROCIN 2% OINT 22 GM TUBE ONE; -ONDANSETRON HCL INJ 2MG/ML 2ML 2 MG/ML VIAL ONE; -PROPOFOL IV EMULSION 10 MG/ML 20 ML VIAL ONE; -SEVOFLURANE INHAL SOLN 250 ML PEN BTL ONE
== END 2022-05-22 ==
LOC: PT 12:56
PROVIDERS: ATTEND Surgery
DX: M54.9 Dorsalgia, unspecified (principal)

== ENCOUNTER 2022-05-23 08:22 | Outpatient (RCR) | payer MEDICARE, OTHER | END 2022-06-21 | LOC: PT 08:22 | PROVIDERS: ATTEND Surgery | DX: M54.9 Dorsalgia, unspecified (principal) ==